=== PATIENT | female | born 1990 | race Caucasian/White ===

== ENCOUNTER → 2016-08-09 15:09 | Emergency (ER) | payer OTHER ==
[~2016-08-09 15:09] MED LIST: Acetaminophen TAB* 325 MG PO ONE; Amoxicillin/Clavulanate TAB* 875 MG PO ONE; Ondansetron INJ* 2 MG/ML VIAL IV ONE
[2016-08-09 16:24] LABS: Hematocrit 44 % (35-47); Mean Corpuscular HGB Conc 34 g/dl (31-36); Mean Corpuscular Hemoglobin 30 pg (27-31); Mean Corpuscular Volume 86 fL (80-97); Mean Platelet Volume 9 um3 (7.4-10.4); Red Blood Count 5.07 10^6/ul (4.0-5.4); Red Cell Distribution Width 13 % (10.5-15); White Blood Count 6.5 10^3/ul (3.5-10.8)
[2016-08-09 16:25] LABS: Venous Bicarbonate HCO3 22.9 mmol/L (24-28)
[2016-08-09] MEDS: NS 0.9% 1000 ML* 3,000 ML IV ONE ×2 (16:31→18:41)
[2016-08-09 16:40] LABS: Albumin 3.9 g/dL (3.2-5.2); BUN/Creatinine Ratio 14.8 (8-20); C Reactive Protein 28.63 mg/L (< 5.00); Calcium 9.1 mg/dL (8.6-10.3); EGFR African American 111.7 (>60); EGFR Non-African American 86.9 (>60); Globulin 3.5 g/dL (2-4); Potassium 3.7 mmol/L (3.5-5.0); Total Bilirubin 0.6 mg/dL (0.2-1.0); Total Protein 7.4 g/dL (6.4-8.9)
[2016-08-09 17:40] VITALS: BP 121/76
[2016-08-09 18:43] LABS: Urine Bilirubin Negative (Negative); Urine Glucose 3+(>=500 mg/dL) (Negative); Urine Nitrite Negative (Negative)
--- NOTE | 2016-08-09 19:13 | ED ---
Archana Astudillo Salem, scribed for Monty Duran MD on 08/09/16 at 1549 . HPI Diabetic - HPI Summary HPI Summary: Patient is a 26 y/o F who presents to the ED with elevated ketones since 1400. She reports a fever, cough, palpitations, nausea since this afternoon, diarrhea , dizzy (a couple of days ago), headache (frontal pressure), intermittent sore throat, rhinorrhea, and fever (for past 2 days), but denies vomiting, urinary symptoms, any rashes, CP, SOB, abd pain, recent teeth infection, or drainage from ear. She also reports a BG level of 286 prior to examination, but states that BG has been fluctuating all week (going from normal to 400). Pt also states that she cleaned her infusion set recently and reports purulent drainage from site. She states that she developed a head cold 4 days ago. PMHx significant for Type 1 DM. Pt has had an insulin pump since she was 15 y/o. She states that her typical HR runs between 80-100. She reports hx of ear infections and infusion set site infection. Pt also states that she spent the weekend with someone who has bronchitis. Pt took Zofran this afternoon for nausea. She states that she was told not to take decongestants by her security services manager due to her fast resting HR. - History Of Current Complaint Chief Complaint: EDDiabeticProb Time Seen by Provider: 08/09/16 15:43 Hx Obtained From: Patient, Family/New Car Inspector Onset/Duration: Gradual Onset, Lasting Hours, Still Present Timing: Constant Severity Initially: Moderate Severity Currently: Moderate Character: Alert Aggravating: Nothing Alleviating: Nothing Associated Signs & Symptoms: Fever, Nausea Related History: DM I - Allergies/Home Medications Allergies/Adverse Reactions: Allergies Allergy/AdvReac Type Severity Reaction Status Date / Time Gluten Meal AdvReac Intermediate Diarrhea Verified 11/12/14 16:32 PMH/Surg Hx/FS Hx/Imm Hx Endocrine/Hematology History: Reports: Hx Diabetes Psychiatric History: Reports: Hx Depression - Immunization History Date of Tetanus Vaccine: Unk Date of Influenza Vaccine: None Infectious Disease History: No Infectious Disease History: Denies: Traveled Outside the [place] in Last 30 Days - Family History Known Family History: Positive: Cardiac Disease - [place] - father. , Hypertension - Social History Alcohol Use: None Hx Substance Use: No Substance Use Type: Reports: None Hx Tobacco Use: No Smoking Status (MU): Never Smoked Tobacco Review of Systems Positive: Fever ENT: Other - No teeth infection. Drainage from ear. Positive: Sore Throat Positive: Palpitations, Other - Ketones high. High BG. . Negative: Chest Pain Positive: Cough. Negative: Shortness Of Breath Positive: Diarrhea, Nausea. Negative: Abdominal Pain, Vomiting Positive: no symptoms reported Positive: Other - Purulent drainage from infusion site. . Negative: Rash Neurological: Other - Dizzy. Positive: Headache All Other Systems Reviewed And Are Negative: Yes Physical Exam - Summary Physical Exam Summary: The patient is well-nourished in no acute distress and in no acute pain. The skin is warm and dry and skin color reflects adequate perfusion. Infusion site does not look infected. HEENT: The head is normocephalic and atraumatic. The pupils are equal and reactive. The conjunctivae are clear and without drainage. Mouth reveals moist mucous membranes and the throat is without erythema and exudate. There is post- nasal drip. No sinus tenderness or adenopathy. The external ears are intact. The left ear canal is patent and without drainage and the tympanic membranes intact. There is clear fluid in right ear. Pt exhibits rhinorrhea. Neck is supple with full range of motion and non-tender. Respiratory: Chest is non-tender. Lungs are clear to auscultation and breath sounds are symmetrical and equal. Cardiovascular: Heart is tachycardic. There is no murmur or rub auscultated. There is no peripheral edema and pulses are symmetrical and equal. Abdomen: The abdomen is soft and non-tender. There are normal bowel sounds heard in all four quadrants. Musculoskeletal: There is no back pain noted. Extremities are non-tender with full range of motion. There is good capillary refill. There is no peripheral edema. Neurological: Patient is alert and oriented to person, place and time. The patient has symmetrical motor strength in all four extremities. Psychiatric: The patient has an appropriate affect and does not exhibit any anxiety or depression. Triage Information Reviewed: Yes Vital Signs On Initial Exam: Initial Vitals Temp Pulse Resp BP Pulse Ox 98.3 F 138 16 143/98 100 08/09/16 15:10 08/09/16 15:10 08/09/16 15:10 08/09/16 15:10 08/09/16 15:10 Vital Signs Reviewed: Yes Diagnostics - Vital Signs Vital Signs Temp Pulse Resp BP Pulse Ox 08/09/16 15:32 100.4 F 119 19 139/94 97 08/09/16 15:30 126 139/94 97 08/09/16 15:28 140/94 08/09/16 15:10 98.3 F 138 16 143/98 100 - Laboratory Lab Results: Lab Results 08/09/16 08/09/16 08/09/16 Range/Units 16:15 16:15 16:15 WBC 6.5 (3.5-10.8) 10^3/ul RBC 5.07 (4.0-5.4) 10^6/ul Hgb 15.0 (12.0-16.0) g/dl Hct 44 (35-47) % MCV 86 (80-97) fL MCH 30 (27-31) pg MCHC 34 (31-36) g/dl RDW 13 (10.5-15) % Plt Count 229 (150-450) 10^3/ul MPV 9 (7.4-10.4) um3 Neut % (Auto) 68.5 (38-83) % Lymph % (Auto) 22.3 L (25-47) % [place] % (Auto) 6.6 (1-9) % Eos % (Auto) 2.0 (0-6) % Baso % (Auto) 0.6 (0-2) % Absolute Neuts (auto) 4.4 (1.5-7.7) 10^3/ul Absolute Lymphs (auto) 1.4 (1.0-4.8) 10^3/ul Absolute Monos (auto) 0.4 (0-0.8) 10^3/ul Absolute Eos (auto) 0.1 (0-0.6) 10^3/ul Absolute Basos (auto) 0 (0-0.2) 10^3/ul Absolute Nucleated RBC 0 10^3/ul Nucleated RBC % 0 VBG pH (7.33-7.43) VBG pCO2 (41-51) mmHg VBG pO2 (35-45) mmHg VBG HCO3 (24-28) mmol/L VBG O2 Saturation (70-80) % VBG Base Excess (0-4) Sodium 131 L (133-145) mmol/L Potassium 3.7 (3.5-5.0) mmol/L Chloride 100 L (101-111) mmol/L Carbon Dioxide 22 (22-32) mmol/L Anion Gap 9 (2-11) mmol/L BUN 12 (6-24) mg/dL Creatinine 0.81 (0.51-0.95) mg/dL Est GFR ( Amer) 111.7 (>60) Est GFR (Non-Af Amer) 86.9 (>60) BUN/Creatinine Ratio 14.8 (8-20) Glucose 265 H (70-100) mg/dL Lactic Acid 1.5 (0.5-2.0) mmol/L Calcium 9.1 (8.6-10.3) mg/dL Total Bilirubin 0.60 (0.2-1.0) mg/dL AST 11 L (13-39) U/L ALT 9 (7-52) U/L Alkaline Phosphatase 68 (34-104) U/L Total Creatine Kinase 24 (10-223) U/L C-Reactive Protein 28.63 H (< 5.00) mg/L Total Protein 7.4 (6.4-8.9) g/dL Albumin 3.9 (3.2-5.2) g/dL Globulin 3.5 (2-4) g/dL Albumin/Globulin Ratio 1.1 (1-3) Urine Color Urine Appearance Urine pH (5-9) Ur Specific [place] (1.010-1.030) Urine Protein (Negative) Urine Ketones (Negative) Urine Blood (Negative) Urine Nitrate (Negative) Urine Bilirubin (Negative) Urine Urobilinogen (Negative) Ur Leukocyte Esterase (Negative) Urine Glucose (Negative) 08/09/16 08/09/16 Range/Units 16:15 18:30 WBC (3.5-10.8) 10^3/ul RBC (4.0-5.4) 10^6/ul Hgb (12.0-16.0) g/dl Hct (35-47) % MCV (80-97) fL MCH (27-31) pg MCHC (31-36) g/dl RDW (10.5-15) % Plt Count (150-450) 10^3/ul MPV (7.4-10.4) um3 Neut % (Auto) (38-83) % Lymph % (Auto) (25-47) % [place] % (Auto) (1-9) % Eos % (Auto) (0-6) % Baso % (Auto) (0-2) % Absolute Neuts (auto) (1.5-7.7) 10^3/ul Absolute Lymphs (auto) (1.0-4.8) 10^3/ul Absolute Monos (auto) (0-0.8) 10^3/ul Absolute Eos (auto) (0-0.6) 10^3/ul Absolute Basos (auto) (0-0.2) 10^3/ul Absolute Nucleated RBC 10^3/ul Nucleated RBC % VBG pH 7.38 (7.33-7.43) VBG pCO2 41 (41-51) mmHg VBG pO2 26 L (35-45) mmHg VBG HCO3 22.9 L (24-28) mmol/L VBG O2 Saturation 53.5 L (70-80) % VBG Base Excess -0.9 L (0-4) Sodium (133-145) mmol/L Potassium (3.5-5.0) mmol/L Chloride (101-111) mmol/L Carbon Dioxide (22-32) mmol/L Anion Gap (2-11) mmol/L BUN (6-24) mg/dL Creatinine (0.51-0.95) mg/dL Est GFR ( Amer) (>60) Est GFR (Non-Af Amer) (>60) BUN/Creatinine Ratio (8-20) Glucose (70-100) mg/dL Lactic Acid (0.5-2.0) mmol/L Calcium (8.6-10.3) mg/dL Total Bilirubin (0.2-1.0) mg/dL AST (13-39) U/L ALT (7-52) U/L Alkaline Phosphatase (34-104) U/L Total Creatine Kinase (10-223) U/L C-Reactive Protein (< 5.00) mg/L Total Protein (6.4-8.9) g/dL Albumin (3.2-5.2) g/dL Globulin (2-4) g/dL Albumin/Globulin Ratio (1-3) Urine Color Yellow Urine Appearance Clear Urine pH 5.0 (5-9) Ur Specific [place] 1.012 (1.010-1.030) Urine Protein Negative (Negative) Urine Ketones 1+ H (Negative) Urine Blood Negative (Negative) Urine Nitrate Negative (Negative) Urine Bilirubin Negative (Negative) Urine Urobilinogen Negative (Negative) Ur Leukocyte Esterase Negative (Negative) Urine Glucose 3+(>=500 mg/dl) H (Negative) Result Diagrams: 08/09/16 16:15 08/09/16 16:15 Lab Statement: Any lab studies that have been ordered have been reviewed, and results considered in the medical decision making process. - EKG 1747 EKG Interpretation: NSR @ 98bpm. LAD. PRWP. Re-Evaluation - Re-Evaluation First Eval Re-Evaluation Time: 17:43 Comment: Reviewed labs. Diabetic Course/Dx - Course Course Of Treatment: 26 y/o F presents with elevated ketones since 1400. She reports a fever, cough, palpitations, nausea since this afternoon, diarrhea, dizzy (a couple of days ago), headache (frontal pressure), intermittent sore throat, rhinorrhea, and fever (for past 2 days), but denies vomiting, urinary symptoms, any rashes, CP, SOB, abd pain, recent teeth infection, or drainage from ear. She also reports a BG level of 286 prior to examination, but states that BG has been fluctuating all week. Pt received Zofran, Tylenol, and fluids in ED course. EKS shows NSR @ 98bpm. LAD. PRWP. Pt is stable and will be DC'd with Augmentin. - Diagnoses Differential Dx: Diabetic Ketoacidosis, Pyelonephritis, Other - sinus infection , uri Provider Diagnoses: Sinusitis, Hypoglycemia, Dehydration Discharge - Discharge Plan Condition: Stable Disposition: HOME Prescriptions: Amoxicillin/Clavulanate TAB* [Augmentin TAB 875*] 875 mg PO BID #20 tab Patient Education Materials: Hypoglycemia in a Person with Diabetes (ED), Dehydration (ED), Sinusitis (ED) Referrals: Dee Hyatt MD [Primary Care Provider] - Additional Instructions: Please follow up with your primary care provider. The documentation as recorded by the Archana gonzalez Salem accurately reflects the service I personally performed and the decisions made by , Monty Duran MD.
== END | disposition home or self-care (01) ==
LOC: ED 15:09
DX: J32.9 Chronic sinusitis, unspecified (principal); E10.649 Type 1 diabetes mellitus with hypoglycemia without coma; E86.0 Dehydration; R50.9 Fever, unspecified; R11.0 Nausea; R51 Headache
CPT/HCPCS: 36415; 80053; 81003; 82550; 82803; 83605; 85025; 86140; 87040; 93005; 96361; 96374; 99283; A9270-GY; J2405

== ENCOUNTER 2016-09-12 22:44 | Emergency (ER) | payer OTHER ==
[2016-09-13] MEDS: NS 0.9% 1000 ML* 2,000 ML IV ONE ×2 (00:40→01:48)
[2016-09-13 00:48] LABS: Venous Bicarbonate HCO3 23.7 mmol/L (24-28)
[2016-09-13 00:54] LABS: Urine Bilirubin Negative (Negative); Urine Glucose 3+(>=500 mg/dL) (Negative); Urine Nitrite Negative (Negative)
[2016-09-13 01:00] LABS: Hematocrit 37 % (35-47); Hemoglobin 12.3 g/dl (12.0-16.0); Mean Corpuscular HGB Conc 33 g/dl (31-36); Mean Corpuscular Hemoglobin 30 pg (27-31); Mean Corpuscular Volume 89 fL (80-97); Mean Platelet Volume 9 um3 (7.4-10.4); Red Blood Count 4.17 10^6/ul (4.0-5.4); Red Cell Distribution Width 13 % (10.5-15); White Blood Count 6.6 10^3/ul (3.5-10.8)
[2016-09-13 01:07] LABS: ALT 11 U/L (7-52); Albumin 3.3 g/dL (3.2-5.2); Alkaline Phosphatase 41 U/L (34-104); BUN/Creatinine Ratio 5.9 (8-20); Blood Urea Nitrogen 4 mg/dL (6-24); C Reactive Protein 5.45 mg/L (< 5.00); CO2 Carbon Dioxide 21 mmol/L (22-32); Calcium 8.6 mg/dL (8.6-10.3); Chloride 106 mmol/L (101-111); Creatine Kinase 49 U/L (10-223); EGFR African American 136.7 (>60); EGFR Non-African American 106.3 (>60); Glucose 220 mg/dL (70-100); Lipase < 10 U/L (11.0-82.0); Sodium 133 mmol/L (133-145); Total Protein 6.3 g/dL (6.4-8.9)
[2016-09-13 01:18] LABS: Anion Gap 6 mmol/L (2-11)
[2016-09-13 01:44] LABS: TSH (Thyroid Stimulating Horm) 2.43 mcIU/mL (0.34-5.60)
[2016-09-13 01:48] LABS: Erythrocyte Sed Rate 11 mm/Hr (0-14)
[2016-09-13 02:17] LABS: Magnesium 1.6 mg/dL (1.9-2.7)
[2016-09-13 03:01] VITALS: BP 120/93
--- NOTE | 2016-09-13 03:15 | ED ---
Romina Astudillo Alfonso, scribed for Alexandra Duran MD on 09/13/16 at 0059 . Complex/Multi-Sys Presentation - HPI Summary HPI Summary: This patient is a 26 year old F presenting to [facility] accompanied by parents with a chief complaint of diabetic problems since two weeks ago. She reports. Pt rates the pain 1/10 in severity. Pt reports ketones in her urine, hypoglycemia, mucous in the stool (1-2 days ago), green stool (today), nausea, and flatulence. Pt denies loss of appetite, dysuria, fatigue, weight change, abdominal pain, and flank pain. She was prescribed bacterium on 09/04 and has since completed the course. Denies recent travel. Denies eating bad food. She reports seeing Dr. Wayne (lean sensei) today who alexandra labs. Denies abdominal PSHx. PMHx of DM type one. - History Of Current Complaint Chief Complaint: EDDiabeticProb Time Seen by Provider: 09/12/16 23:28 Hx Obtained From: Patient Onset/Duration: Sudden Onset, Lasting Weeks - 2, Still Present Timing: Constant Severity Currently: Moderate Severity Initially: Moderate Associated Signs And Symptoms: Positive: Other - Pt reports ketones in her urine , hypoglycemia, mucous in the stool (1-2 days ago), green stool (today), nausea , and flatulence. Pt denies loss of appetite, dysuria, fatigue, weight change, abdominal pain, and flank pain. - Allergies/Home Medications Allergies/Adverse Reactions: Allergies Allergy/AdvReac Type Severity Reaction Status Date / Time Gluten Meal AdvReac Intermediate Diarrhea Verified 11/12/14 16:32 PMH/Surg Hx/FS Hx/Imm Hx Endocrine/Hematology History: Reports: Hx Diabetes - Type 1 Psychiatric History: Reports: Hx Depression - Immunization History Date of Tetanus Vaccine: Unk Date of Influenza Vaccine: None Infectious Disease History: No Infectious Disease History: Denies: Traveled Outside the [place] in Last 30 Days - Family History Known Family History: Positive: Cardiac Disease - [place] - father. , Hypertension - Social History Alcohol Use: None Hx Substance Use: No Substance Use Type: Reports: None Hx Tobacco Use: No Smoking Status (MU): Never Smoked Tobacco Review of Systems Positive: Other - Positive ketones in her urine, hypoglycemia, mucous in the stool (1-2 days ago), green stool (today), nausea, and flatulence; negative loss of appetite, weight change, abdominal pain, and flank pain Negative: dysuria Neurological: Other - Positive fatigue All Other Systems Reviewed And Are Negative: Yes Physical Exam - Summary Physical Exam Summary: The patient is well-nourished in no acute distress and in no acute pain. The skin is warm and dry and skin color reflects adequate perfusion. Good skin turgor. HEENT: The head is normocephalic and atraumatic. The pupils are equal and reactive. The conjunctivae are clear and without drainage. Nares are patent and without drainage. Mouth reveals moist mucous membranes and the throat is without erythema and exudate. The external ears are intact. The ear canals are patent and without drainage. The tympanic membranes are intact. Neck is supple with full range of motion and non-tender. There are no carotid bruits. There is no neck vein distension. Respiratory: Chest is non-tender. Lungs are clear to auscultation and breath sounds are symmetrical and equal. Cardiovascular: Heart is tachycardic. There is no murmur or rub auscultated. There is no peripheral edema and pulses are symmetrical and equal. Abdomen: The abdomen is soft and non-tender. There are normal bowel sounds heard in all four quadrants and there is no organomegaly palpated. No gaurding or rebound. Musculoskeletal: There is no back pain noted. Extremities are non-tender with full range of motion. There is 2 second capillary refill. There is no peripheral edema or calf tenderness elicited. Neurological: Patient is alert and oriented to person, place and time. The patient has symmetrical motor strength in all four extremities. Cranial nerves are grossly intact. Deep tendon reflexes are symmetrical and equal in all four extremities. Psychiatric: The patient has an appropriate affect and does not exhibit any anxiety or depression. Triage Information Reviewed: Yes Vital Signs On Initial Exam: Initial Vitals Temp Pulse Resp BP Pulse Ox 98.7 F 99 18 146/97 100 09/12/16 22:47 09/12/16 22:47 09/12/16 22:47 09/12/16 22:47 09/12/16 22:47 Vital Signs Reviewed: Yes - Myles Coma Scale Coma Scale Total: 15 Diagnostics - Vital Signs Vital Signs Temp Pulse Resp BP Pulse Ox 09/13/16 00:12 132/94 09/13/16 00:00 98 98 09/12/16 23:30 93 133/85 98 09/12/16 23:14 111 99 09/12/16 23:10 108 99 09/12/16 23:07 98.6 F 112 18 137/82 100 09/12/16 22:47 98.7 F 99 18 146/97 100 - Laboratory Lab Results: Lab Results 09/13/16 09/13/16 Range/Units 00:30 00:30 VBG pH 7.41 (7.33-7.43) VBG pCO2 36 L (41-51) mmHg VBG pO2 66 H (35-45) mmHg VBG HCO3 23.7 L (24-28) mmol/L VBG O2 Saturation 96.4 H (70-80) % VBG Base Excess -1.5 L (0-4) Urine Color Straw Urine Appearance Clear Urine pH 6.0 (5-9) Ur Specific [place] 1.005 L (1.010-1.030) Urine Protein Negative (Negative) Urine Ketones Negative (Negative) Urine Blood Negative (Negative) Urine Nitrate Negative (Negative) Urine Bilirubin Negative (Negative) Urine Urobilinogen Negative (Negative) Ur Leukocyte Esterase Negative (Negative) Urine Glucose 3+(>=500 mg/dl) H (Negative) Result Diagrams: 09/13/16 00:30 09/13/16 01:18 Lab Statement: Any lab studies that have been ordered have been reviewed, and results considered in the medical decision making process. - Radiology Abd X-Ray Radiology Interpretation Completed By: ED Physician - No obstruction and increased stool in the colon. Complex Multi-Symp Course/Dx Assessment/Plan: 26 [facility] with a chief complaint of diabetic problems since two weeks ago. She reports. Pt rates the pain 1/10 in severity. Pt reports ketones in her urine, hypoglycemia, mucous in the stool (1-2 days ago), green stool (today), nausea, and flatulence. Pt denies loss of appetite, dysuria, fatigue, weight change, abdominal pain, and flank pain. She was prescribed bacterium on 09/04 and has since completed the course. Denies recent travel. Denies eating bad food. She reports seeing Dr. Wayne (lean sensei) today who alexandra labs. Denies abdominal PSHx. PMHx of DM type one. Abdominal XR reveals no obstruction and increased stool in the colon. Patient will be discharged with follow up from PCP, Dr. Wayne , and GI. Pt is agreeable with this plan. - Diagnoses Differential Diagnoses/HQI/PQRI: Metabolic Abnormality, Urinary Tract Infection , Other - DKA, obstruction, constipation Provider Diagnoses: Hyperglycemia, Abdominal discomfort Discharge - Discharge Plan Condition: Stable Disposition: HOME Patient Education Materials: How to Check Your Blood Sugar (ED), Type 1 Diabetes Management for Adolescents (ED) Referrals: Nino Wayne MD [Medical Doctor] - 7 Days Dee Hyatt MD [Primary Care Provider] - 3 Days Marvin Vásquez MD [Medical Doctor] - 3 Days Additional Instructions: Follow up with a GI physician. Consider seeking a second opinion regarding Celiac Disease. The documentation as recorded by the Romina gonzalez Alfonso accurately reflects the service I personally performed and the decisions made by , Alexandra Duran MD.
--- NOTE | 2016-09-13 10:21 | RAD ---
Indication: Pain, diarrhea. Question ileus or small bowel obstruction. Comparison: February 22, 2013 Technique: Supine and upright views of the abdomen. Report: No radiographic evidence for free air. Unremarkable bowel gas pattern. Moderate stool in the colon without significant rectal distension. Negative for suspicious calcifications. Unremarkable soft tissue contours. IMPRESSION: No acute abdominal pelvic pathologic process evident.
== END 2016-09-13 03:03 | disposition home or self-care (01) ==
LOC: ED 22:44
DX: R73.9 Hyperglycemia, unspecified (principal); R10.9 Unspecified abdominal pain
CPT/HCPCS: 36415; 74020; 80053; 81003; 82550; 82803; 83605; 83690; 83735; 84443; 84702; 85025; 85652; 86140; 96360; 99284

== ENCOUNTER 2017-06-20 13:33 | Inpatient (IN) | payer OTHER ==
[2017-06-20] MEDS ORDERED: NS 0.9% 1000 ML*IV.FLUID IV ONE (14:04)
[2017-06-20] MEDS ORDERED: Ondansetron ODT TAB* 4 MG PO ONE (14:08)
[2017-06-20 14:33] LABS: ABS Basophils 0 10^3/ul (0-0.2); ABS Eosinophils 0 10^3/ul (0-0.6); ABS Lymphocytes 0.5 10^3/ul (1.0-4.8); ABS Monocytes 0 10^3/ul (0-0.8); ABS Neutrophils 12.2 10^3/ul (1.5-7.7); ABS Nucleated RBC 0 10^3/ul; Eosinophil % 0.1 % (0-6); Hematocrit 44 % (35-47); Hemoglobin 14.9 g/dl (12.0-16.0); Lymphocyte % 4.1 % (25-47); Mean Corpuscular HGB Conc 34 g/dl (31-36); Mean Corpuscular Hemoglobin 30 pg (27-31); Mean Corpuscular Volume 89 fL (80-97); Mean Platelet Volume 8.6 um3 (7.4-10.4); Nucleated Red Blood Cells % 0; Platelet Count 260 10^3/ul (150-450); Red Blood Count 5.01 10^6/ul (4.0-5.4); Red Cell Distribution Width 13 % (10.5-15); White Blood Count 12.8 10^3/ul (3.5-10.8)
[2017-06-20 14:45] LABS: INR 0.86 (0.77-1.02)
[2017-06-20 15:00] LABS: EGFR Non-African American 77.9 (>60)
[2017-06-20] MEDS ORDERED: Dextrose 50% Syringe 50 ML* 25 GM/50 ML SYRINGE IV PUSH ONE (16:19)
[2017-06-20 16:24] LABS: Urine Appearance Clear; Urine Blood Negative (Negative); Urine Color Straw; Urine Ketones Negative (Negative); Urine Protein Negative (Negative); Urine Specific Gravity 1.008 (1.010-1.030); Urine Urobilinogen Negative (Negative)
[2017-06-20] MEDS ORDERED: NS 0.9% 1000 ML* 1,000 ML IV ONE (17:13)
[2017-06-20] MEDS ORDERED: Ciprofloxacin 400MG IVPREMIX(* 400 MG/200 ML BAG IVPB ONE (18:04)
[2017-06-20] MEDS ORDERED: NS 0.9% 1000 ML* 3,000 ML IV ONE (18:05)
[2017-06-20] MEDS ORDERED: Ondansetron INJ* 2 MG/ML SYRINGE (from 40/20 VIAL) IV PRN (18:11)
[2017-06-20] MEDS ORDERED: Potassium Chlor TAB* 20 MEQ TAB.ER PO ONE (18:11)
[2017-06-20] MEDS ORDERED: Ondansetron ODT TAB* 4 MG ONE (18:24)
[2017-06-20] MEDS ORDERED: Iodixanol* (CONTRAST) 320 MG/ML 100 ML SDV IV ONE (18:26)
--- NOTE | 2017-06-20 18:26 | ED ---
Hector Astudillo Stephanie, scribed for Domenic Rockwell MD on 06/20/17 at 1415 . GI/ HPI - HPI Summary HPI Summary: The pt is a 26 y/o F presenting to the ED with c/o N/V/D that began today. Symptoms include chills, diffuse and intermittent abd cramping, dehydration and high blood glucose. The pt has hx of diabetes since age 15. She recently changed the site of her insulin because her most recent site became infected. - History of Current Complaint Chief Complaint: EDNauseaVomitDiarrh Time Seen by Provider: 06/20/17 13:52 Stated Complaint: DIABICTIC Hx Obtained From: Patient Onset/Duration: Started Hours Ago, Still Present Timing: Constant Current Severity: Severe Pain Intensity: 6 Location of Pain: Diffuse Pain Characteristics: Cramping Associated Signs and Symptoms: Positive: Nausea, Vomiting, Diarrhea, Chills, Abdominal Pain, Other: - dehydration Aggravating Factor(s): Nothing Alleviating Factor(s): Nothing - Allergy/Home Medications Allergies/Adverse Reactions: Allergies Allergy/AdvReac Type Severity Reaction Status Date / Time MS Gluten Meal [Gluten Meal] AdvReac Intermediate Diarrhea Verified 11/12/14 16: 32 Home Medications: Home Medications Cholecalciferol TAB* [Vitamin D TAB*] 4,000 unit PO DAILY 06/20/17 [History Confirmed 06/20/17] Cyanocobalamin TAB* [Vitamin B12 TAB*] 500 mcg PO DAILY 06/20/17 [History Confirmed 06/20/17] Insulin Glulisine [Apidra] 0 units SUBCUT DAILY 06/20/17 [History Confirmed 01/26] Multivitamins/Minerals TAB* [Theragran/minerals TAB*] 1 tab PO DAILY 06/20/17 [ History Confirmed 06/20/17] Sertraline* [Zoloft*] 100 mg PO DAILY 06/20/17 [History Confirmed 06/20/17] ValACYclovir (*) [Valtrex 500 mg (*)] 500 mg PO BID PRN 06/20/17 [History Confirmed 06/20/17] l-Norgest/E.estradiol-E.estrad [Daysee] 1 tab PO DAILY 06/20/17 [History Confirmed 06/20/17] PMH/Surg Hx/FS Hx/Imm Hx Endocrine/Hematology History: Reports: Hx Diabetes - Type 1 Sensory History: Denies: Hx Legally Blind EENT History: Denies: Hx Deafness Psychiatric History: Reports: Hx Depression - Immunization History Date of Tetanus Vaccine: Unk Date of Influenza Vaccine: None Infectious Disease History: No Infectious Disease History: Denies: Traveled Outside the [place] in Last 30 Days - Family History Known Family History: Positive: Cardiac Disease - [place] - father. , Hypertension - Social History Occupation: Employed Part-time Lives: With Family Alcohol Use: None Hx Substance Use: No Substance Use Type: Reports: None Hx Tobacco Use: No Smoking Status (MU): Never Smoked Tobacco Review of Systems Positive: Chills, Other - dehydration, high blood glucose. Negative: Fever Positive: Abdominal Pain, Vomiting, Diarrhea, Nausea All Other Systems Reviewed And Are Negative: Yes Physical Exam - Summary Physical Exam Summary: General: well-appearing, no pain distress Skin: warm, color reflects adequate perfusion, dry Head: normal Eyes: EOMI, ODALYS ENT: oral mucosa dry Neck: supple, nontender Respiratory: CTA, breath sounds present Cardiovascular: tachycardic Abdomen: soft, nontender to palpation Bowel: positive bowel sounds Musculoskeletal: normal, strength/ROM intact Neurological: sensory/motor intact, A&O x3 Psychological: affect/mood appropriate Triage Information Reviewed: Yes Vital Signs On Initial Exam: Initial Vitals Temp Pulse Resp BP Pulse Ox 98.7 F 135 20 101/67 100 06/20/17 13:37 06/20/17 13:37 06/20/17 13:37 06/20/17 13:37 06/20/17 13:37 Vital Signs Reviewed: Yes Diagnostics - Vital Signs Vital Signs Temp Pulse Resp BP Pulse Ox 06/20/17 13:37 98.7 F 135 20 101/67 100 - Laboratory Lab Results: Lab Results 06/20/17 06/20/17 06/20/17 Range/Units 13:52 14:19 14:19 WBC 12.8 H (3.5-10.8) 10^3/ul RBC 5.01 (4.0-5.4) 10^6/ul Hgb 14.9 (12.0-16.0) g/dl Hct 44 (35-47) % MCV 89 (80-97) fL MCH 30 (27-31) pg MCHC 34 (31-36) g/dl RDW 13 (10.5-15) % Plt Count 260 (150-450) 10^3/ul MPV 8.6 (7.4-10.4) um3 Neut % (Auto) 95.3 H (38-83) % Lymph % (Auto) 4.1 L (25-47) % Buchanan % (Auto) 0.4 (0-7) % Eos % (Auto) 0.1 (0-6) % Baso % (Auto) 0.1 (0-2) % Absolute Neuts (auto) 12.2 H (1.5-7.7) 10^3/ul Absolute Lymphs (auto) 0.5 L (1.0-4.8) 10^3/ul Absolute Monos (auto) 0 (0-0.8) 10^3/ul Absolute Eos (auto) 0 (0-0.6) 10^3/ul Absolute Basos (auto) 0 (0-0.2) 10^3/ul Absolute Nucleated RBC 0 10^3/ul Nucleated RBC % 0 INR (Anticoag Therapy) 0.86 (0.77-1.02) APTT 21.6 L (26.0-36.3) seconds Sodium (139-145) mmol/L Potassium (3.5-5.0) mmol/L Chloride (101-111) mmol/L Carbon Dioxide (22-32) mmol/L Anion Gap (2-11) mmol/L BUN (6-24) mg/dL Creatinine (0.51-0.95) mg/dL Est GFR ( Amer) (>60) Est GFR (Non-Af Amer) (>60) BUN/Creatinine Ratio (8-20) Glucose (70-100) mg/dL POC Glucose (mg/dL) 169 H (70-100) mg/dL Lactic Acid (0.5-2.0) mmol/L Calcium (8.6-10.3) mg/dL Total Bilirubin (0.2-1.0) mg/dL AST (13-39) U/L ALT (7-52) U/L Alkaline Phosphatase (34-104) U/L Troponin I (<0.04) ng/mL C-Reactive Protein (< 5.00) mg/L Total Protein (6.4-8.9) g/dL Albumin (3.2-5.2) g/dL Globulin (2-4) g/dL Albumin/Globulin Ratio (1-3) Lipase (11.0-82.0) U/L Procalcitonin (<0.6) ng/mL Beta HCG, Quant mIU/mL Urine Color Urine Appearance Urine pH (5-9) Ur Specific Beaver (1.010-1.030) Urine Protein (Negative) Urine Ketones (Negative) Urine Blood (Negative) Urine Nitrate (Negative) Urine Bilirubin (Negative) Urine Urobilinogen (Negative) Ur Leukocyte Esterase (Negative) Urine Glucose (Negative) 06/20/17 06/20/17 06/20/17 Range/Units 14:19 14:19 14:19 WBC (3.5-10.8) 10^3/ul RBC (4.0-5.4) 10^6/ul Hgb (12.0-16.0) g/dl Hct (35-47) % MCV (80-97) fL MCH (27-31) pg MCHC (31-36) g/dl RDW (10.5-15) % Plt Count (150-450) 10^3/ul MPV (7.4-10.4) um3 Neut % (Auto) (38-83) % Lymph % (Auto) (25-47) % Buchanan % (Auto) (0-7) % Eos % (Auto) (0-6) % Baso % (Auto) (0-2) % Absolute Neuts (auto) (1.5-7.7) 10^3/ul Absolute Lymphs (auto) (1.0-4.8) 10^3/ul Absolute Monos (auto) (0-0.8) 10^3/ul Absolute Eos (auto) (0-0.6) 10^3/ul Absolute Basos (auto) (0-0.2) 10^3/ul Absolute Nucleated RBC 10^3/ul Nucleated RBC % INR (Anticoag Therapy) (0.77-1.02) APTT (26.0-36.3) seconds Sodium 141 (139-145) mmol/L Potassium 3.1 L (3.5-5.0) mmol/L Chloride 106 (101-111) mmol/L Carbon Dioxide 22 (22-32) mmol/L Anion Gap 13 H (2-11) mmol/L BUN 12 (6-24) mg/dL Creatinine 0.89 (0.51-0.95) mg/dL Est GFR ( Amer) 100.2 (>60) Est GFR (Non-Af Amer) 77.9 (>60) BUN/Creatinine Ratio 13.5 (8-20) Glucose 135 H (70-100) mg/dL POC Glucose (mg/dL) (70-100) mg/dL Lactic Acid 4.6 H* (0.5-2.0) mmol/L Calcium 9.0 (8.6-10.3) mg/dL Total Bilirubin 0.70 (0.2-1.0) mg/dL AST 17 (13-39) U/L ALT 13 (7-52) U/L Alkaline Phosphatase 70 (34-104) U/L Troponin I 0.00 (<0.04) ng/mL C-Reactive Protein 13.71 H (< 5.00) mg/L Total Protein 7.0 (6.4-8.9) g/dL Albumin 3.8 (3.2-5.2) g/dL Globulin 3.2 (2-4) g/dL Albumin/Globulin Ratio 1.2 (1-3) Lipase 13 (11.0-82.0) U/L Procalcitonin 1.5 H (<0.6) ng/mL Beta HCG, Quant < 0.60 mIU/mL Urine Color Urine Appearance Urine pH (5-9) Ur Specific Beaver (1.010-1.030) Urine Protein (Negative) Urine Ketones (Negative) Urine Blood (Negative) Urine Nitrate (Negative) Urine Bilirubin (Negative) Urine Urobilinogen (Negative) Ur Leukocyte Esterase (Negative) Urine Glucose (Negative) 06/20/17 06/20/17 06/20/17 Range/Units 15:26 15:50 16:10 WBC (3.5-10.8) 10^3/ul RBC (4.0-5.4) 10^6/ul Hgb (12.0-16.0) g/dl Hct (35-47) % MCV (80-97) fL MCH (27-31) pg MCHC (31-36) g/dl RDW (10.5-15) % Plt Count (150-450) 10^3/ul MPV (7.4-10.4) um3 Neut % (Auto) (38-83) % Lymph % (Auto) (25-47) % Buchanan % (Auto) (0-7) % Eos % (Auto) (0-6) % Baso % (Auto) (0-2) % Absolute Neuts (auto) (1.5-7.7) 10^3/ul Absolute Lymphs (auto) (1.0-4.8) 10^3/ul Absolute Monos (auto) (0-0.8) 10^3/ul Absolute Eos (auto) (0-0.6) 10^3/ul Absolute Basos (auto) (0-0.2) 10^3/ul Absolute Nucleated RBC 10^3/ul Nucleated RBC % INR (Anticoag Therapy) (0.77-1.02) APTT (26.0-36.3) seconds Sodium (139-145) mmol/L Potassium (3.5-5.0) mmol/L Chloride (101-111) mmol/L Carbon Dioxide (22-32) mmol/L Anion Gap (2-11) mmol/L BUN (6-24) mg/dL Creatinine (0.51-0.95) mg/dL Est GFR ( Amer) (>60) Est GFR (Non-Af Amer) (>60) BUN/Creatinine Ratio (8-20) Glucose (70-100) mg/dL POC Glucose (mg/dL) 89 79 (70-100) mg/dL Lactic Acid (0.5-2.0) mmol/L Calcium (8.6-10.3) mg/dL Total Bilirubin (0.2-1.0) mg/dL AST (13-39) U/L ALT (7-52) U/L Alkaline Phosphatase (34-104) U/L Troponin I (<0.04) ng/mL C-Reactive Protein (< 5.00) mg/L Total Protein (6.4-8.9) g/dL Albumin (3.2-5.2) g/dL Globulin (2-4) g/dL Albumin/Globulin Ratio (1-3) Lipase (11.0-82.0) U/L Procalcitonin (<0.6) ng/mL Beta HCG, Quant mIU/mL Urine Color Straw Urine Appearance Clear Urine pH 5.0 (5-9) Ur Specific Beaver 1.008 L (1.010-1.030) Urine Protein Negative (Negative) Urine Ketones Negative (Negative) Urine Blood Negative (Negative) Urine Nitrate Negative (Negative) Urine Bilirubin Negative (Negative) Urine Urobilinogen Negative (Negative) Ur Leukocyte Esterase Negative (Negative) Urine Glucose Negative (Negative) 06/20/17 06/20/17 Range/Units 16:18 16:53 WBC (3.5-10.8) 10^3/ul RBC (4.0-5.4) 10^6/ul Hgb (12.0-16.0) g/dl Hct (35-47) % MCV (80-97) fL MCH (27-31) pg MCHC (31-36) g/dl RDW (10.5-15) % Plt Count (150-450) 10^3/ul MPV (7.4-10.4) um3 Neut % (Auto) (38-83) % Lymph % (Auto) (25-47) % Buchanan % (Auto) (0-7) % Eos % (Auto) (0-6) % Baso % (Auto) (0-2) % Absolute Neuts (auto) (1.5-7.7) 10^3/ul Absolute Lymphs (auto) (1.0-4.8) 10^3/ul Absolute Monos (auto) (0-0.8) 10^3/ul Absolute Eos (auto) (0-0.6) 10^3/ul Absolute Basos (auto) (0-0.2) 10^3/ul Absolute Nucleated RBC 10^3/ul Nucleated RBC % INR (Anticoag Therapy) (0.77-1.02) APTT (26.0-36.3) seconds Sodium (139-145) mmol/L Potassium (3.5-5.0) mmol/L Chloride (101-111) mmol/L Carbon Dioxide (22-32) mmol/L Anion Gap (2-11) mmol/L BUN (6-24) mg/dL Creatinine (0.51-0.95) mg/dL Est GFR ( Amer) (>60) Est GFR (Non-Af Amer) (>60) BUN/Creatinine Ratio (8-20) Glucose (70-100) mg/dL POC Glucose (mg/dL) 53 L 172 H (70-100) mg/dL Lactic Acid (0.5-2.0) mmol/L Calcium (8.6-10.3) mg/dL Total Bilirubin (0.2-1.0) mg/dL AST (13-39) U/L ALT (7-52) U/L Alkaline Phosphatase (34-104) U/L Troponin I (<0.04) ng/mL C-Reactive Protein (< 5.00) mg/L Total Protein (6.4-8.9) g/dL Albumin (3.2-5.2) g/dL Globulin (2-4) g/dL Albumin/Globulin Ratio (1-3) Lipase (11.0-82.0) U/L Procalcitonin (<0.6) ng/mL Beta HCG, Quant mIU/mL Urine Color Urine Appearance Urine pH (5-9) Ur Specific Beaver (1.010-1.030) Urine Protein (Negative) Urine Ketones (Negative) Urine Blood (Negative) Urine Nitrate (Negative) Urine Bilirubin (Negative) Urine Urobilinogen (Negative) Ur Leukocyte Esterase (Negative) Urine Glucose (Negative) Result Diagrams: 18 14:19 18 14:19 Lab Statement: Any lab studies that have been ordered have been reviewed, and results considered in the medical decision making process. - EKG 17:14 Cardiac Rate: Tachycardia EKG Rhythm: Sinus Tachycardia - 147 BPM Ectopy: None EKG Interpretation: borderline T abnormalities in the inferior leads Re-Evaluation - Re-Evaluation First Eval Re-Evaluation Time: 17:11 Change: Unchanged - ED physician discussed plan of admission with the pt and the pt agrees. GIGU Course/Dx - Course Course Of Treatment: HEART RATE CONTINUES TO BE TACHYCARDIC AFTER 2.5L IV BOLUS. NAUSEA REMAINS. YUSEF HAD A HYPOGLYCEMIC EPISODE AFTER IVF REQUIRING IV AMP OF DEXTROSE. ADMIT HOSPITALIST. - Diagnoses Provider Diagnoses: Vomiting and diarrhea, Abdominal pain, Dehydration, Tachycardia - Physician Notifications Discussed Care Of Patient With: Deidre Roman Time Discussed With Above Provider: 17:09 Instructed by Provider To: Admit As Inpatient - Critical Care Time Critical Care Time: 30-74 min Discharge - Sign-Out/Discharge Documenting (check all that apply): Discharge/Admit/Transfer - Discharge Plan Condition: Stable Disposition: ADMITTED TO [facility] Referrals: Dee Hyatt MD [Primary Care Provider] - - Billing Disposition and Condition Condition: STABLE [place] [place] The documentation as recorded by the Hector gonzalez Stephanie accurately reflects the service I personally performed and the decisions made by me, Domenic Rockwell MD.
[2017-06-20] MEDS: Ondansetron ODT TAB* 4 MG SL PRN (18:30)
--- NOTE | 2017-06-20 19:32 | RAD ---
Indication: Right upper quadrant mass. Real-time sonography of the right upper quadrant was performed. No solid or cystic lesions identified. No shadowing masses are noted. IMPRESSION: No solid or cystic lesions identified.
[2017-06-20] MEDS: Acetaminophen TAB* 325 MG PO PRN (19:52)
--- NOTE | 2017-06-20 21:12 | RAD ---
Indication: Abdominal tenderness, left lower quadrant sepsis CT of the abdomen and pelvis was performed without oral contrast administration. IV contrast was given. Coronal and sagittal reconstructed images were obtained. The lung bases demonstrate no pleural fluid, nodules or masses. Heart is of normal size without evidence of pericardial effusion. Liver is normal in size. No focal lesions or intrahepatic ductal dilatation is noted. The gallbladder is partially contracted. There may be a small amount of pericholecystic fluid noted. The spleen is normal in size. The pancreas demonstrates no mass or pancreatic ductal dilatation. No dilated loops of bowel are noted. There is air and fluid throughout the colon. No adrenal masses are noted. The kidneys demonstrate symmetric nephrograms without focal lesions or hydronephrosis. No retroperitoneal lymphadenopathy is noted. Aorta and inferior vena cava are unremarkable. CT of the pelvis demonstrates uterus to be unremarkable. No dilated loops of bowel are noted. No hernias are noted. Small amount of subcutaneous edema is noted in the right lower quadrant. This may represent a small hematoma. The urinary bladder is unremarkable. IMPRESSION: Pericholecystic fluid is noted. No other masses or fluid collections are identified. There may be some minimal infiltration of the subcutaneous fat in the right lower quadrant. This may represent hematoma.
[2017-06-20] MEDS: NS 0.9% 1000 ML* 1,000 ML IV SCH (21:41)
[2017-06-20] MEDS: metroNIDAZOLE IV 500 MG/100ML* 500 MG/100 ML BAG IVPB SCH (21:41)
--- NOTE | 2017-06-20 22:01 | HP ---
CC: Dr. Hyatt; Dr. Wayne * ADMISSION HISTORY AND PHYSICAL: DATE OF ADMISSION: 06/20/17 PRIMARY CARE PROVIDER: Dr. Hyatt. AIRLINE OPERATIONS AGENT: Dr. Wayne. HEALTHCARE PROXY: Her mother. CODE STATUS: Full. SOURCE OF INFORMATION: History obtained from the interview with the patient and her mother. RELIABILITY: Good. CHIEF COMPLAINT: Nausea, vomiting, and diarrhea. HISTORY OF PRESENT ILLNESS: This is a 26-year-old female with past medical history including type 1 diabetes, currently utilizing an insulin pump, as well as possible history of celiac disease and depression, who was in her usual state of health this morning when she woke up, was at [place] [employer] and noticed that infusion site for insulin was sore approximately 9:30 p.m. She returned home and changed the site and needle and noticed "green yellow pus" like "goo" coming out on the site of the previous needle with the addition of pain. She ate, noticed a substantial bump in her blood sugar to 380, which was abnormal. Checked her blood for ketones which she was able to check at home which were elevated. At noon, she developed nonstop emesis for about 1-1/2 hours associated with watery diarrhea that may have contained mucus, which she notes is not uncommon for her. While at the [employer], she had eaten [place] salad with falafel that was noted be gluten-free and she has had before as well as a gluten-free brownie which she has not had before. On Thursday approximately 6 days prior, she did have gluten accidentally, which caused diarrhea all day. In the past, gluten ingestion has caused additionally constipation or nausea but never vomiting. She denies any fevers. She has had noted chills while in the hospital. She has a mild headache. No cough. She does have rhinorrhea. She denies sick contacts. She has had no travel. She has not been camping. She does not drink well water. She has not eaten any undercooked foods. She notes she always has palpitations as she does now. Has noted a little chest pain earlier that has now resolved. She had noted diarrhea and vomiting when she presented to the hospital, the last episode approximately an hour and a half before evaluated by this author. She has received 2 L of normal saline. At the time of my evaluation, the heart rate remains 140 beats per minute. PAST MEDICAL HISTORY: Type 1 diabetes, on insulin pump; suspected celiac or IBS per the patient's report; depression; history of tachycardia on previous Holter in 2015. MEDICATIONS: Home medications include: 1. Insulin pump since 2005. 2. Zoloft 100 mg daily. 3. Oral contraceptive pills. 4. Valacyclovir p.r.n. 5. Vitamin D 4000 International Units daily. 6. Vitamin B12 unknown dose. 7. Claritin p.r.n. 8. Multivitamin daily. 9. Immune booster vitamin. ALLERGIES: To GLUTEN, BACTRIM causes GI distress. FAMILY HISTORY: IBS, MS in her grandmother and CAD in her father. 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 No tobacco. Rare alcohol use. REVIEW OF SYSTEMS: As per HPI. Otherwise, all other systems negative. PHYSICAL EXAMINATION GENERAL: Well-appearing 26-year-old female, sitting up in bed, interactive, in no apparent distress. VITAL SIGNS: Blood pressure 101/67, heart rate is 140 beats per minute, respiratory rate is 18, her T-max is 98.7, she is 99% on room air. HEENT: Her oropharynx is clear. Moist mucous membranes. Sclerae are anicteric. NECK: She has non-elevated JVD. No cervical or supraclavicular lymphadenopathy. LUNGS: Clear to auscultation. HEART: She has tachycardic heart rate without murmurs, rubs, or gallops. ABDOMEN: Soft. She has tenderness in the left lower quadrant without rebound or guarding, nondistended. In the area of her previous subcutaneous needle for insulin in the right abdomen, there is what feels like a subcutaneous nodule that is non-mobile, tender to palpation, and does not express any pus with deep palpation. EXTREMITIES: Warm and well perfused without clubbing, cyanosis, or edema. She has 2+ peripheral pulses, less than 2-second cap refill. NEUROLOGIC: She is alert and oriented x3. Her cranial nerves II through XII are intact. DIAGNOSTIC STUDIES/LAB DATA: Labs reviewed: Notable for white blood cell count 12.8, which has 95.3% neutrophils. Lactic acid is 4.6. Her potassium is 3.1. Procalcitonin is 1.5. CRP is 13.7. Urine is bland with a specific gravity of 1.008. EKG: Sinus tachycardia, borderline left axis deviation, no ST or T-wave changes. ASSESSMENT AND PLAN: This is a 26-year-old female had sudden-onset nausea, vomiting, diarrhea that has since resolved, found with leukocytosis with left shift as well as tachycardia in the emergency room concerning for sepsis, although no notable source. 1. Systemic inflammatory response syndrome criteria with elevated lactic acidosis, no clear source. Most predominant symptoms have been nausea, vomiting , and diarrhea that is very well maybe viral gastroenteritis with resultant dehydration and tachycardia. Given the left lower quadrant tenderness and no other source concern for sepsis, we will obtain CT abdomen and pelvis with contrast to rule out diverticulitis. Additionally, right upper quadrant soft tissue ultrasound to evaluate subcutaneous nodule in area the patient identified as expressing pus from. I will treat her with ciprofloxacin and Flagyl for presumed intra-abdominal source at this time, which should also cover skin fermin with the ciprofloxacin should the site of subcutaneous needle site be ultimate source. She has received 2 L of normal saline, we will bolus 3 additional liters until heart rate is better controlled. We will place her on telemetry for heart rate monitoring. Stool cultures pending as well as Clostridium difficile and stool ova and parasites. Blood cultures being obtained as well. Repeat lactic acid is ordered for 6:05 now and is being collected. 2. Type 1 diabetes. The patient to continue home insulin pump with our fingerstick checking. 3. Tachycardia as indicated above, suspect in the setting of dehydration and/ or infection. Attempted carotid massage as well as vagal maneuvers without improvement. If the patient's heart does not improve with continued fluid, we will have to consider adenosine challenge to further identify a rhythm. Ayanna- Parkinson- White does not appear to be a play in this patient. She has had palpitations for a long time and has been evaluated by Cardiology and has worn a Holter monitor, notable for tachycardia in the past per the patient's report. 4. Hypokalemia. 40 p.o. potassium now. 5. History of depression. Continue Zoloft. 6. DVT prophylaxis. Low risk. Ambulate ad domenic. [id number]/[facility] #: [id number] [facility]
[2017-06-21] MEDS: Acetaminophen TAB* 325 MG PO PRN ×4 (01:13→23:23)
--- NOTE | 2017-06-21 01:15 | PN ---
Progress Note - Progress Note Date of Service: 06/21/17 Note: Nursing requested eval for low blood pressure and fever 101F. Automated blood pressure was 60/30s while manual was 100/60s. Ms Mock is lying in bed appearing anxious with report of malaise & chills, but otherwise OK. She does admit to LUQ > RUQ pain earlier. CT is notable for pericholecystic fluid and to my eye some GB wall thickening although no stone was seen either on CT or US. Lungs clear. CV TRR. Abdomen: soft, non-distended, moderate RUQ tenderness w/o rebound/rigidity. Extremities: W&D assessment: plan sepsis (tachycardia, tachypnea, leukocytosis, fever) 2nd ?etiology : suspect acalculous cholecystitis vs viral infection : continue IV ciprofloxacin & metronidazole : blood CXs pending : IVFs : recheck lactic : check CXR : UA reviewed, negative : supportive care
[2017-06-21] MEDS: metroNIDAZOLE IV 500 MG/100ML* 500 MG/100 ML BAG IVPB SCH ×3 (04:52→19:31)
[2017-06-21] MEDS: Ondansetron ODT TAB* 4 MG SL PRN (04:56)
[2017-06-21] MEDS: Ciprofloxacin 400MG IVPREMIX(* 400 MG/200 ML BAG IVPB SCH ×2 (05:51→17:17)
[2017-06-21 06:37] LABS: ABS Basophils 0 10^3/ul (0-0.2); ABS Eosinophils 0.3 10^3/ul (0-0.6); ABS Lymphocytes 0.2 10^3/ul (1.0-4.8); ABS Monocytes 0.2 10^3/ul (0-0.8); ABS Neutrophils 18.6 10^3/ul (1.5-7.7); ABS Nucleated RBC 0 10^3/ul; Eosinophil % 1.3 % (0-6); Hematocrit 38 % (35-47); Hemoglobin 12.7 g/dl (12.0-16.0); Lymphocyte % 1.1 % (25-47); Mean Corpuscular HGB Conc 33 g/dl (31-36); Mean Corpuscular Hemoglobin 30 pg (27-31); Mean Corpuscular Volume 89 fL (80-97); Mean Platelet Volume 8.2 um3 (7.4-10.4); Nucleated Red Blood Cells % 0; Platelet Count 183 10^3/ul (150-450); Red Cell Distribution Width 13 % (10.5-15); White Blood Count 19.3 10^3/ul (3.5-10.8)
[2017-06-21] MEDS ORDERED: PROCHLORPERAZINE INJ 5 MG/ML 2 ML VIAL IV PRN (06:51)
[2017-06-21 06:54] LABS: EGFR Non-African American 101.1 (>60)
[2017-06-21] MEDS: Cholecalciferol TAB* 1000 UNITS PO SCH (07:39)
[2017-06-21] MEDS: Sertraline* 100 MG TAB PO SCH (07:40)
[2017-06-21] MEDS: Cyanocobalamin TAB* 500 MCG PO SCH (07:40)
[2017-06-21] MEDS: Multivitamins/Minerals TAB PO SCH (07:40)
[2017-06-21] MEDS: NS 0.9% 1000 ML* 1,000 ML IV SCH ×3 (07:42→15:18)
[2017-06-21] MEDS: [UNRECOGNIZED DRUG - OTHER] PO SCH (08:00)
[2017-06-21] MEDS: NORGEST PO SCH (08:00)
[2017-06-21] MEDS: E ESTRADIOL E ESTRAD PO SCH (08:00)
[2017-06-21] MEDS: INSULIN GLULISINE SUBCUT SCH (08:43)
--- NOTE | 2017-06-21 10:36 | RAD ---
Indication: Sepsis. Single frontal view of the chest performed at 0149 hours was reviewed. Comparison is made with previous exam dated May 29, 2011. No mediastinal shift is noted. Heart is of normal size and configuration. Lung dominguez appear clear. IMPRESSION: NO ACTIVE CARDIOPULMONARY DISEASE IS NOTED.
--- NOTE | 2017-06-21 11:01 | PN ---
Subjective Date of Service: 06/21/17 Interval History: Seen with mother at bedside Had frequent diarrhea overnight and nausea Diarrhea this AM x 4 but has since resolved x several hours Abdominal pain this AM but has resolved completely x 2-3 hours SIMMONS 4 out of 10 last night now resolved No symptom, cough, SOB, CP Tolerated liquids this AM including OJ Objective Active Medications: Acetaminophen (Tylenol Tab*) 650 mg PO Q6H PRN PRN Reason: PAIN Last Admin: 06/21/17 07:39 Dose: 650 mg Cholecalciferol (Vitamin D Tab*) 4,000 units PO DAILY [facility] Last Admin: 06/21/17 07:39 Dose: 4,000 units Cyanocobalamin (Vitamin B12 Tab*) 500 mcg PO DAILY [facility] Last Admin: 06/21/17 07:40 Dose: 500 mcg Metronidazole/Sodium Chloride (Flagyl 500 Mg Ivpb*) 500 mg in 100 mls @ 100 mls /hr IVPB Q8H [facility] Last Admin: 06/21/17 04:52 Dose: 100 mls/hr Ciprofloxacin/Dextrose (Cipro 400 Mg Ivpremix(*)) 400 mg in 200 mls @ 200 mls/ hr IVPB Q12H [facility] Last Admin: 06/21/17 05:51 Dose: 200 mls/hr Sodium Chloride (Ns 0.9% 1000 Ml*) 1,000 mls @ 150 mls/hr IV PER RATE [facility] Multivitamins/Minerals (Theragran/Minerals Tab*) 1 tab PO DAILY [facility] Last Admin: 06/21/17 07:40 Dose: 1 tab Non-Formulary Medication (Insulin Glulisine [Apidra]) 0 units SUBCUT DAILY [facility] Last Admin: 06/21/17 08:43 Dose: Not Given Non-Formulary Medication (L-Norgest/E.Estradiol-E.Estrad [Daysee 0.15-0.03-0.01 Mg Tab]) 1 tab PO DAILY [facility] Last Admin: 06/21/17 08:00 Dose: Not Given Ondansetron HCl (Zofran Inj*) 4 mg IV Q4H PRN PRN Reason: NAUSEA Last Admin: 06/21/17 05:20 Dose: 4 mg Ondansetron HCl (Zofran Odt Tab*) 4 mg SL Q6H PRN PRN Reason: NAUSEA/VOMITING Last Admin: 06/21/17 04:56 Dose: 4 mg Prochlorperazine Edisylate (Compazine Inj*) 10 mg IV Q6H PRN PRN Reason: NAUSEA/VOMITING Last Admin: 06/21/17 07:06 Dose: 10 mg Sertraline HCl (Zoloft*) 100 mg PO DAILY [facility] Last Admin: 06/21/17 07:40 Dose: 100 mg Vital Signs - 8 hr 06/21/17 06/21/17 06/21/17 03:44 04:31 08:00 Temperature 100.4 F Pulse Rate 127 Respiratory 16 Rate Blood Pressure 84/41 95/60 (mmHg) O2 Sat by Pulse 97 98 Oximetry 06/21/17 08:12 Temperature 99.6 F Pulse Rate 133 Respiratory 20 Rate Blood Pressure 90/51 (mmHg) O2 Sat by Pulse 98 Oximetry Oxygen Devices in Use Now: None Appearance: well appearing, NAD Eyes: No Scleral Icterus, PERRLA Ears/Nose/Mouth/Throat: NL Teeth, Lips, Gums, Clear Oropharnyx Neck: NL Appearance and Movements; NL JVP, Trachea Midline, No Thyroid Enlargement, Masses Respiratory: Symmetrical Chest Expansion and Respiratory Effort, Clear to Auscultation Cardiovascular: NL Sounds; No Murmurs; No JVD, - - tachy Abdominal: NL Sounds; No Tenderness; No Distention Lymphatic: No Cervical Adenopathy Extremities: No Edema, No Clubbing, Cyanosis Skin: No Rash or Ulcers Neurological: Alert and Oriented x 3 Result Diagrams: 06/21/17 06:29 06/21/17 06:29 Additional Lab and Data: Lab Results 06/20/17 06/20/17 06/20/17 Range/Units 13:52 14:19 14:19 WBC 12.8 H (3.5-10.8) 10^3/ul RBC 5.01 (4.0-5.4) 10^6/ul Hgb 14.9 (12.0-16.0) g/dl Hct 44 (35-47) % MCV 89 (80-97) fL MCH 30 (27-31) pg MCHC 34 (31-36) g/dl RDW 13 (10.5-15) % Plt Count 260 (150-450) 10^3/ul MPV 8.6 (7.4-10.4) um3 Neut % (Auto) 95.3 H (38-83) % Lymph % (Auto) 4.1 L (25-47) % [place] % (Auto) 0.4 (0-7) % Eos % (Auto) 0.1 (0-6) % Baso % (Auto) 0.1 (0-2) % Absolute Neuts (auto) 12.2 H (1.5-7.7) 10^3/ul Absolute Lymphs (auto) 0.5 L (1.0-4.8) 10^3/ul Absolute Monos (auto) 0 (0-0.8) 10^3/ul Absolute Eos (auto) 0 (0-0.6) 10^3/ul Absolute Basos (auto) 0 (0-0.2) 10^3/ul Absolute Nucleated RBC 0 10^3/ul Nucleated RBC % 0 INR (Anticoag Therapy) 0.86 (0.77-1.02) APTT 21.6 L (26.0-36.3) seconds Sodium (139-145) mmol/L Potassium (3.5-5.0) mmol/L Chloride (101-111) mmol/L Carbon Dioxide (22-32) mmol/L Anion Gap (2-11) mmol/L BUN (6-24) mg/dL Creatinine (0.51-0.95) mg/dL Est GFR ( Amer) (>60) Est GFR (Non-Af Amer) (>60) BUN/Creatinine Ratio (8-20) Glucose (70-100) mg/dL POC Glucose (mg/dL) 169 H (70-100) mg/dL Lactic Acid (0.5-2.0) mmol/L Calcium (8.6-10.3) mg/dL Total Bilirubin (0.2-1.0) mg/dL AST (13-39) U/L ALT (7-52) U/L Alkaline Phosphatase (34-104) U/L Troponin I (<0.04) ng/mL C-Reactive Protein (< 5.00) mg/L Total Protein (6.4-8.9) g/dL Albumin (3.2-5.2) g/dL Globulin (2-4) g/dL Albumin/Globulin Ratio (1-3) Lipase (11.0-82.0) U/L Procalcitonin (<0.6) ng/mL Beta HCG, Quant mIU/mL Urine Color Urine Appearance Urine pH (5-9) Ur Specific [place] (1.010-1.030) Urine Protein (Negative) Urine Ketones (Negative) Urine Blood (Negative) Urine Nitrate (Negative) Urine Bilirubin (Negative) Urine Urobilinogen (Negative) Ur Leukocyte Esterase (Negative) Urine Glucose (Negative) 06/20/17 06/20/17 06/20/17 Range/Units 14:19 14:19 14:19 WBC (3.5-10.8) 10^3/ul RBC (4.0-5.4) 10^6/ul Hgb (12.0-16.0) g/dl Hct (35-47) % MCV (80-97) fL MCH (27-31) pg MCHC (31-36) g/dl RDW (10.5-15) % Plt Count (150-450) 10^3/ul MPV (7.4-10.4) um3 Neut % (Auto) (38-83) % Lymph % (Auto) (25-47) % [place] % (Auto) (0-7) % Eos % (Auto) (0-6) % Baso % (Auto) (0-2) % Absolute Neuts (auto) (1.5-7.7) 10^3/ul Absolute Lymphs (auto) (1.0-4.8) 10^3/ul Absolute Monos (auto) (0-0.8) 10^3/ul Absolute Eos (auto) (0-0.6) 10^3/ul Absolute Basos (auto) (0-0.2) 10^3/ul Absolute Nucleated RBC 10^3/ul Nucleated RBC % INR (Anticoag Therapy) (0.77-1.02) APTT (26.0-36.3) seconds Sodium 141 (139-145) mmol/L Potassium 3.1 L (3.5-5.0) mmol/L Chloride 106 (101-111) mmol/L Carbon Dioxide 22 (22-32) mmol/L Anion Gap 13 H (2-11) mmol/L BUN 12 (6-24) mg/dL Creatinine 0.89 (0.51-0.95) mg/dL Est GFR ( Amer) 100.2 (>60) Est GFR (Non-Af Amer) 77.9 (>60) BUN/Creatinine Ratio 13.5 (8-20) Glucose 135 H (70-100) mg/dL POC Glucose (mg/dL) (70-100) mg/dL Lactic Acid 4.6 H* (0.5-2.0) mmol/L Calcium 9.0 (8.6-10.3) mg/dL Total Bilirubin 0.70 (0.2-1.0) mg/dL AST 17 (13-39) U/L ALT 13 (7-52) U/L Alkaline Phosphatase 70 (34-104) U/L Troponin I 0.00 (<0.04) ng/mL C-Reactive Protein 13.71 H (< 5.00) mg/L Total Protein 7.0 (6.4-8.9) g/dL Albumin 3.8 (3.2-5.2) g/dL Globulin 3.2 (2-4) g/dL Albumin/Globulin Ratio 1.2 (1-3) Lipase 13 (11.0-82.0) U/L Procalcitonin 1.5 H (<0.6) ng/mL Beta HCG, Quant < 0.60 mIU/mL Urine Color Urine Appearance Urine pH (5-9) Ur Specific [place] (1.010-1.030) Urine Protein (Negative) Urine Ketones (Negative) Urine Blood (Negative) Urine Nitrate (Negative) Urine Bilirubin (Negative) Urine Urobilinogen (Negative) Ur Leukocyte Esterase (Negative) Urine Glucose (Negative) 06/20/17 06/20/17 06/20/17 Range/Units 15:26 15:50 16:10 WBC (3.5-10.8) 10^3/ul RBC (4.0-5.4) 10^6/ul Hgb (12.0-16.0) g/dl Hct (35-47) % MCV (80-97) fL MCH (27-31) pg MCHC (31-36) g/dl RDW (10.5-15) % Plt Count (150-450) 10^3/ul MPV (7.4-10.4) um3 Neut % (Auto) (38-83) % Lymph % (Auto) (25-47) % [place] % (Auto) (0-7) % Eos % (Auto) (0-6) % Baso % (Auto) (0-2) % Absolute Neuts (auto) (1.5-7.7) 10^3/ul Absolute Lymphs (auto) (1.0-4.8) 10^3/ul Absolute Monos (auto) (0-0.8) 10^3/ul Absolute Eos (auto) (0-0.6) 10^3/ul Absolute Basos (auto) (0-0.2) 10^3/ul Absolute Nucleated RBC 10^3/ul Nucleated RBC % INR (Anticoag Therapy) (0.77-1.02) APTT (26.0-36.3) seconds Sodium (139-145) mmol/L Potassium (3.5-5.0) mmol/L Chloride (101-111) mmol/L Carbon Dioxide (22-32) mmol/L Anion Gap (2-11) mmol/L BUN (6-24) mg/dL Creatinine (0.51-0.95) mg/dL Est GFR ( Amer) (>60) Est GFR (Non-Af Amer) (>60) BUN/Creatinine Ratio (8-20) Glucose (70-100) mg/dL POC Glucose (mg/dL) 89 79 (70-100) mg/dL Lactic Acid (0.5-2.0) mmol/L Calcium (8.6-10.3) mg/dL Total Bilirubin (0.2-1.0) mg/dL AST (13-39) U/L ALT (7-52) U/L Alkaline Phosphatase (34-104) U/L Troponin I (<0.04) ng/mL C-Reactive Protein (< 5.00) mg/L Total Protein (6.4-8.9) g/dL Albumin (3.2-5.2) g/dL Globulin (2-4) g/dL Albumin/Globulin Ratio (1-3) Lipase (11.0-82.0) U/L Procalcitonin (<0.6) ng/mL Beta HCG, Quant mIU/mL Urine Color Straw Urine Appearance Clear Urine pH 5.0 (5-9) Ur Specific [place] 1.008 L (1.010-1.030) Urine Protein Negative (Negative) Urine Ketones Negative (Negative) Urine Blood Negative (Negative) Urine Nitrate Negative (Negative) Urine Bilirubin Negative (Negative) Urine Urobilinogen Negative (Negative) Ur Leukocyte Esterase Negative (Negative) Urine Glucose Negative (Negative) 06/20/17 06/20/17 Range/Units 16:18 16:53 WBC (3.5-10.8) 10^3/ul RBC (4.0-5.4) 10^6/ul Hgb (12.0-16.0) g/dl Hct (35-47) % MCV (80-97) fL MCH (27-31) pg MCHC (31-36) g/dl RDW (10.5-15) % Plt Count (150-450) 10^3/ul MPV (7.4-10.4) um3 Neut % (Auto) (38-83) % Lymph % (Auto) (25-47) % [place] % (Auto) (0-7) % Eos % (Auto) (0-6) % Baso % (Auto) (0-2) % Absolute Neuts (auto) (1.5-7.7) 10^3/ul Absolute Lymphs (auto) (1.0-4.8) 10^3/ul Absolute Monos (auto) (0-0.8) 10^3/ul Absolute Eos (auto) (0-0.6) 10^3/ul Absolute Basos (auto) (0-0.2) 10^3/ul Absolute Nucleated RBC 10^3/ul Nucleated RBC % INR (Anticoag Therapy) (0.77-1.02) APTT (26.0-36.3) seconds Sodium (139-145) mmol/L Potassium (3.5-5.0) mmol/L Chloride (101-111) mmol/L Carbon Dioxide (22-32) mmol/L Anion Gap (2-11) mmol/L BUN (6-24) mg/dL Creatinine (0.51-0.95) mg/dL Est GFR ( Amer) (>60) Est GFR (Non-Af Amer) (>60) BUN/Creatinine Ratio (8-20) Glucose (70-100) mg/dL POC Glucose (mg/dL) 53 L 172 H (70-100) mg/dL Lactic Acid (0.5-2.0) mmol/L Calcium (8.6-10.3) mg/dL Total Bilirubin (0.2-1.0) mg/dL AST (13-39) U/L ALT (7-52) U/L Alkaline Phosphatase (34-104) U/L Troponin I (<0.04) ng/mL C-Reactive Protein (< 5.00) mg/L Total Protein (6.4-8.9) g/dL Albumin (3.2-5.2) g/dL Globulin (2-4) g/dL Albumin/Globulin Ratio (1-3) Lipase (11.0-82.0) U/L Procalcitonin (<0.6) ng/mL Beta HCG, Quant mIU/mL Urine Color Urine Appearance Urine pH (5-9) Ur Specific [place] (1.010-1.030) Urine Protein (Negative) Urine Ketones (Negative) Urine Blood (Negative) Urine Nitrate (Negative) Urine Bilirubin (Negative) Urine Urobilinogen (Negative) Ur Leukocyte Esterase (Negative) Urine Glucose (Negative) Assess/Plan/Problems-Billing Assessment: 26 yo F h/o DM type I and celiacs vs IBS pw sudden onset diarrhea, N/V found with tachycardia/fever/leukocytosis - Patient Problems (1) Sepsis Comment: Suspect bacteria but no identified source doubt meningitis w/out SIMMONS No symptoms US soft tissue did not identify any drainable collection in area pt thought she saw "pus" Pericholecystic fluid on CT A/P but no abd pain on exam today. CXR wnl and urine wnl, C. diff negative, Blood cultures remain pending ( discussed with lab) WBC up today but GI symptoms resolving and feels better. Check US RUQ to eval gallbladder c/w cipro/flagyl as she improves No LP now but consider if SIMMONS returns and no source is identified (2) Tachycardia Comment: Pt and mother note her baseline is around 110. Increase NS to 150cc/hr Monitor on tele (3) Diabetes Comment: Patient managing with insulin pump
--- NOTE | 2017-06-21 14:49 | RAD ---
Indication: Right upper quadrant pain. Real-time sonography of the right upper quadrant was performed. The liver measures 21 cm in length. No focal lesions or intrahepatic ductal dilatation is noted. The gallbladder is contracted with no definite gallstones although the lumen cannot be well evaluated. Pericholecystic fluid is noted. Right kidney measures 11.5 x 6.7 x 4.8 cm. The pancreas demonstrates no mass or pancreatic duct dilatation. IMPRESSION: Partially contracted gallbladder with pericholecystic fluid.
[2017-06-22] MEDS: NS 0.9% 1000 ML* 1,000 ML IV SCH ×2 (00:31→09:34)
[2017-06-22] MEDS: metroNIDAZOLE IV 500 MG/100ML* 500 MG/100 ML BAG IVPB SCH ×3 (04:13→21:00)
[2017-06-22] MEDS: Ciprofloxacin 400MG IVPREMIX(* 400 MG/200 ML BAG IVPB SCH ×2 (05:26→16:53)
[2017-06-22] MEDS: Acetaminophen TAB* 325 MG PO PRN (06:43)
[2017-06-22 06:54] LABS: ABS Basophils 0.1 10^3/ul (0-0.2); ABS Lymphocytes 1.1 10^3/ul (1.0-4.8); ABS Monocytes 0.4 10^3/ul (0-0.8); ABS Neutrophils 15.1 10^3/ul (1.5-7.7); ABS Nucleated RBC 0 10^3/ul; Eosinophil % 5.5 % (0-6); Hematocrit 39 % (35-47); Hemoglobin 13.1 g/dl (12.0-16.0); Mean Corpuscular HGB Conc 34 g/dl (31-36); Mean Corpuscular Hemoglobin 30 pg (27-31); Mean Corpuscular Volume 88 fL (80-97); Mean Platelet Volume 8.7 um3 (7.4-10.4); Nucleated Red Blood Cells % 0; Platelet Count 129 10^3/ul (150-450); Red Blood Count 4.43 10^6/ul (4.0-5.4); Red Cell Distribution Width 13 % (10.5-15); White Blood Count 17.7 10^3/ul (3.5-10.8)
[2017-06-22] MEDS: Multivitamins/Minerals TAB PO SCH (07:41)
[2017-06-22] MEDS: Sertraline* 100 MG TAB PO SCH (07:41)
[2017-06-22] MEDS: Cyanocobalamin TAB* 500 MCG PO SCH (07:41)
[2017-06-22] MEDS: Cholecalciferol TAB* 1000 UNITS PO SCH (07:41)
[2017-06-22] MEDS: INSULIN GLULISINE SUBCUT SCH (07:47)
[2017-06-22] MEDS: NORGEST PO SCH (07:47)
[2017-06-22] MEDS: [UNRECOGNIZED DRUG - OTHER] PO SCH (07:47)
[2017-06-22] MEDS: E ESTRADIOL E ESTRAD PO SCH (07:47)
--- NOTE | 2017-06-22 16:18 | PN ---
Subjective Date of Service: 06/22/17 Interval History: C/O diffuse myalgias/arthralgias, overall somewhat better than yesterday. Appetite fair. No more diarrhea or emesis. She attributes her diarrhea to celiac disease but she has never had emesis from celiac disease in the past. Objective Active Medications: Acetaminophen (Tylenol Tab*) 650 mg PO Q6H PRN PRN Reason: PAIN Last Admin: 06/22/17 06:43 Dose: 650 mg Cholecalciferol (Vitamin D Tab*) 4,000 units PO DAILY [facility] Last Admin: 06/22/17 07:41 Dose: 4,000 units Cosyntropin (Cosyntropin*) 0.25 mg IV ONCE ONE Stop: 06/23/17 07:31 Cyanocobalamin (Vitamin B12 Tab*) 500 mcg PO DAILY [facility] Last Admin: 06/22/17 07:41 Dose: 500 mcg Metronidazole/Sodium Chloride (Flagyl 500 Mg Ivpb*) 500 mg in 100 mls @ 100 mls /hr IVPB Q8H [facility] Last Admin: 06/22/17 11:45 Dose: 100 mls/hr Ciprofloxacin/Dextrose (Cipro 400 Mg Ivpremix(*)) 400 mg in 200 mls @ 200 mls/ hr IVPB Q12H [facility] Last Admin: 06/22/17 05:26 Dose: 200 mls/hr Multivitamins/Minerals (Theragran/Minerals Tab*) 1 tab PO DAILY [facility] Last Admin: 06/22/17 07:41 Dose: 1 tab Non-Formulary Medication (Insulin Glulisine [Apidra]) 0 units SUBCUT DAILY [facility] Last Admin: 06/22/17 07:47 Dose: Not Given Non-Formulary Medication (L-Norgest/E.Estradiol-E.Estrad [Daysee 0.15-0.03-0.01 Mg Tab]) 1 tab PO DAILY [facility] Last Admin: 06/22/17 07:47 Dose: Not Given Ondansetron HCl (Zofran Inj*) 4 mg IV Q4H PRN PRN Reason: NAUSEA Last Admin: 06/21/17 05:20 Dose: 4 mg Ondansetron HCl (Zofran Odt Tab*) 4 mg SL Q6H PRN PRN Reason: NAUSEA/VOMITING Last Admin: 06/21/17 04:56 Dose: 4 mg Potassium Chloride (Klor Con Er Tab*) 20 meq PO TID [facility] Prochlorperazine Edisylate (Compazine Inj*) 10 mg IV Q6H PRN PRN Reason: NAUSEA/VOMITING Last Admin: 06/21/17 07:06 Dose: 10 mg Sertraline HCl (Zoloft*) 100 mg PO DAILY [facility] Last Admin: 06/22/17 07:41 Dose: 100 mg Vital Signs - 8 hr 06/22/17 06/22/17 12:00 15:37 Temperature 98.3 F Pulse Rate 103 90 Respiratory 18 20 Rate Blood Pressure 121/67 114/62 (mmHg) O2 Sat by Pulse 100 100 Oximetry Oxygen Devices in Use Now: None Appearance: Alert, supine in bed. In good spirits. Looks comfortable. Eyes: No Scleral Icterus Abdominal: NL Sounds; No Tenderness; No Distention, No Hepatosplenomegaly, - Extremities: No Clubbing, Cyanosis, - - 1-2+ edema both hands Skin: No Rash or Ulcers, No Nodules or Sclerosis, - - Spot on abdomen completely healed Neurological: Alert and Oriented x 3, NL Sensation Result Diagrams: 06/22/17 06:41 06/22/17 05:42 Additional Lab and Data: Lab Results 06/20/17 06/20/17 06/20/17 Range/Units 13:52 14:19 14:19 WBC 12.8 H (3.5-10.8) 10^3/ul RBC 5.01 (4.0-5.4) 10^6/ul Hgb 14.9 (12.0-16.0) g/dl Hct 44 (35-47) % MCV 89 (80-97) fL MCH 30 (27-31) pg MCHC 34 (31-36) g/dl RDW 13 (10.5-15) % Plt Count 260 (150-450) 10^3/ul MPV 8.6 (7.4-10.4) um3 Neut % (Auto) 95.3 H (38-83) % Lymph % (Auto) 4.1 L (25-47) % [place] % (Auto) 0.4 (0-7) % Eos % (Auto) 0.1 (0-6) % Baso % (Auto) 0.1 (0-2) % Absolute Neuts (auto) 12.2 H (1.5-7.7) 10^3/ul Absolute Lymphs (auto) 0.5 L (1.0-4.8) 10^3/ul Absolute Monos (auto) 0 (0-0.8) 10^3/ul Absolute Eos (auto) 0 (0-0.6) 10^3/ul Absolute Basos (auto) 0 (0-0.2) 10^3/ul Absolute Nucleated RBC 0 10^3/ul Nucleated RBC % 0 INR (Anticoag Therapy) 0.86 (0.77-1.02) APTT 21.6 L (26.0-36.3) seconds Sodium (139-145) mmol/L Potassium (3.5-5.0) mmol/L Chloride (101-111) mmol/L Carbon Dioxide (22-32) mmol/L Anion Gap (2-11) mmol/L BUN (6-24) mg/dL Creatinine (0.51-0.95) mg/dL Est GFR ( Amer) (>60) Est GFR (Non-Af Amer) (>60) BUN/Creatinine Ratio (8-20) Glucose (70-100) mg/dL POC Glucose (mg/dL) 169 H (70-100) mg/dL Lactic Acid (0.5-2.0) mmol/L Calcium (8.6-10.3) mg/dL Total Bilirubin (0.2-1.0) mg/dL AST (13-39) U/L ALT (7-52) U/L Alkaline Phosphatase (34-104) U/L Troponin I (<0.04) ng/mL C-Reactive Protein (< 5.00) mg/L Total Protein (6.4-8.9) g/dL Albumin (3.2-5.2) g/dL Globulin (2-4) g/dL Albumin/Globulin Ratio (1-3) Lipase (11.0-82.0) U/L Procalcitonin (<0.6) ng/mL Beta HCG, Quant mIU/mL Urine Color Urine Appearance Urine pH (5-9) Ur Specific [place] (1.010-1.030) Urine Protein (Negative) Urine Ketones (Negative) Urine Blood (Negative) Urine Nitrate (Negative) Urine Bilirubin (Negative) Urine Urobilinogen (Negative) Ur Leukocyte Esterase (Negative) Urine Glucose (Negative) 06/20/17 06/20/17 06/20/17 Range/Units 14:19 14:19 14:19 WBC (3.5-10.8) 10^3/ul RBC (4.0-5.4) 10^6/ul Hgb (12.0-16.0) g/dl Hct (35-47) % MCV (80-97) fL MCH (27-31) pg MCHC (31-36) g/dl RDW (10.5-15) % Plt Count (150-450) 10^3/ul MPV (7.4-10.4) um3 Neut % (Auto) (38-83) % Lymph % (Auto) (25-47) % [place] % (Auto) (0-7) % Eos % (Auto) (0-6) % Baso % (Auto) (0-2) % Absolute Neuts (auto) (1.5-7.7) 10^3/ul Absolute Lymphs (auto) (1.0-4.8) 10^3/ul Absolute Monos (auto) (0-0.8) 10^3/ul Absolute Eos (auto) (0-0.6) 10^3/ul Absolute Basos (auto) (0-0.2) 10^3/ul Absolute Nucleated RBC 10^3/ul Nucleated RBC % INR (Anticoag Therapy) (0.77-1.02) APTT (26.0-36.3) seconds Sodium 141 (139-145) mmol/L Potassium 3.1 L (3.5-5.0) mmol/L Chloride 106 (101-111) mmol/L Carbon Dioxide 22 (22-32) mmol/L Anion Gap 13 H (2-11) mmol/L BUN 12 (6-24) mg/dL Creatinine 0.89 (0.51-0.95) mg/dL Est GFR ( Amer) 100.2 (>60) Est GFR (Non-Af Amer) 77.9 (>60) BUN/Creatinine Ratio 13.5 (8-20) Glucose 135 H (70-100) mg/dL POC Glucose (mg/dL) (70-100) mg/dL Lactic Acid 4.6 H* (0.5-2.0) mmol/L Calcium 9.0 (8.6-10.3) mg/dL Total Bilirubin 0.70 (0.2-1.0) mg/dL AST 17 (13-39) U/L ALT 13 (7-52) U/L Alkaline Phosphatase 70 (34-104) U/L Troponin I 0.00 (<0.04) ng/mL C-Reactive Protein 13.71 H (< 5.00) mg/L Total Protein 7.0 (6.4-8.9) g/dL Albumin 3.8 (3.2-5.2) g/dL Globulin 3.2 (2-4) g/dL Albumin/Globulin Ratio 1.2 (1-3) Lipase 13 (11.0-82.0) U/L Procalcitonin 1.5 H (<0.6) ng/mL Beta HCG, Quant < 0.60 mIU/mL Urine Color Urine Appearance Urine pH (5-9) Ur Specific [place] (1.010-1.030) Urine Protein (Negative) Urine Ketones (Negative) Urine Blood (Negative) Urine Nitrate (Negative) Urine Bilirubin (Negative) Urine Urobilinogen (Negative) Ur Leukocyte Esterase (Negative) Urine Glucose (Negative) 06/20/17 06/20/17 06/20/17 Range/Units 15:26 15:50 16:10 WBC (3.5-10.8) 10^3/ul RBC (4.0-5.4) 10^6/ul Hgb (12.0-16.0) g/dl Hct (35-47) % MCV (80-97) fL MCH (27-31) pg MCHC (31-36) g/dl RDW (10.5-15) % Plt Count (150-450) 10^3/ul MPV (7.4-10.4) um3 Neut % (Auto) (38-83) % Lymph % (Auto) (25-47) % [place] % (Auto) (0-7) % Eos % (Auto) (0-6) % Baso % (Auto) (0-2) % Absolute Neuts (auto) (1.5-7.7) 10^3/ul Absolute Lymphs (auto) (1.0-4.8) 10^3/ul Absolute Monos (auto) (0-0.8) 10^3/ul Absolute Eos (auto) (0-0.6) 10^3/ul Absolute Basos (auto) (0-0.2) 10^3/ul Absolute Nucleated RBC 10^3/ul Nucleated RBC % INR (Anticoag Therapy) (0.77-1.02) APTT (26.0-36.3) seconds Sodium (139-145) mmol/L Potassium (3.5-5.0) mmol/L Chloride (101-111) mmol/L Carbon Dioxide (22-32) mmol/L Anion Gap (2-11) mmol/L BUN (6-24) mg/dL Creatinine (0.51-0.95) mg/dL Est GFR ( Amer) (>60) Est GFR (Non-Af Amer) (>60) BUN/Creatinine Ratio (8-20) Glucose (70-100) mg/dL POC Glucose (mg/dL) 89 79 (70-100) mg/dL Lactic Acid (0.5-2.0) mmol/L Calcium (8.6-10.3) mg/dL Total Bilirubin (0.2-1.0) mg/dL AST (13-39) U/L ALT (7-52) U/L Alkaline Phosphatase (34-104) U/L Troponin I (<0.04) ng/mL C-Reactive Protein (< 5.00) mg/L Total Protein (6.4-8.9) g/dL Albumin (3.2-5.2) g/dL Globulin (2-4) g/dL Albumin/Globulin Ratio (1-3) Lipase (11.0-82.0) U/L Procalcitonin (<0.6) ng/mL Beta HCG, Quant mIU/mL Urine Color Straw Urine Appearance Clear Urine pH 5.0 (5-9) Ur Specific [place] 1.008 L (1.010-1.030) Urine Protein Negative (Negative) Urine Ketones Negative (Negative) Urine Blood Negative (Negative) Urine Nitrate Negative (Negative) Urine Bilirubin Negative (Negative) Urine Urobilinogen Negative (Negative) Ur Leukocyte Esterase Negative (Negative) Urine Glucose Negative (Negative) 06/20/17 06/20/17 Range/Units 16:18 16:53 WBC (3.5-10.8) 10^3/ul RBC (4.0-5.4) 10^6/ul Hgb (12.0-16.0) g/dl Hct (35-47) % MCV (80-97) fL MCH (27-31) pg MCHC (31-36) g/dl RDW (10.5-15) % Plt Count (150-450) 10^3/ul MPV (7.4-10.4) um3 Neut % (Auto) (38-83) % Lymph % (Auto) (25-47) % [place] % (Auto) (0-7) % Eos % (Auto) (0-6) % Baso % (Auto) (0-2) % Absolute Neuts (auto) (1.5-7.7) 10^3/ul Absolute Lymphs (auto) (1.0-4.8) 10^3/ul Absolute Monos (auto) (0-0.8) 10^3/ul Absolute Eos (auto) (0-0.6) 10^3/ul Absolute Basos (auto) (0-0.2) 10^3/ul Absolute Nucleated RBC 10^3/ul Nucleated RBC % INR (Anticoag Therapy) (0.77-1.02) APTT (26.0-36.3) seconds Sodium (139-145) mmol/L Potassium (3.5-5.0) mmol/L Chloride (101-111) mmol/L Carbon Dioxide (22-32) mmol/L Anion Gap (2-11) mmol/L BUN (6-24) mg/dL Creatinine (0.51-0.95) mg/dL Est GFR ( Amer) (>60) Est GFR (Non-Af Amer) (>60) BUN/Creatinine Ratio (8-20) Glucose (70-100) mg/dL POC Glucose (mg/dL) 53 L 172 H (70-100) mg/dL Lactic Acid (0.5-2.0) mmol/L Calcium (8.6-10.3) mg/dL Total Bilirubin (0.2-1.0) mg/dL AST (13-39) U/L ALT (7-52) U/L Alkaline Phosphatase (34-104) U/L Troponin I (<0.04) ng/mL C-Reactive Protein (< 5.00) mg/L Total Protein (6.4-8.9) g/dL Albumin (3.2-5.2) g/dL Globulin (2-4) g/dL Albumin/Globulin Ratio (1-3) Lipase (11.0-82.0) U/L Procalcitonin (<0.6) ng/mL Beta HCG, Quant mIU/mL Urine Color Urine Appearance Urine pH (5-9) Ur Specific [place] (1.010-1.030) Urine Protein (Negative) Urine Ketones (Negative) Urine Blood (Negative) Urine Nitrate (Negative) Urine Bilirubin (Negative) Urine Urobilinogen (Negative) Ur Leukocyte Esterase (Negative) Urine Glucose (Negative) Assess/Plan/Problems-Billing Assessment: 26 yo F h/o DM type I and celiacs vs IBS pw sudden onset diarrhea, N/V found with tachycardia/fever/leukocytosis - Patient Problems (1) Sepsis Current Visit: Yes Status: Acute Comment: Myalgias, emesis point to possible viral illness despite abnl procalciatonin. CXR wnl and urine wnl, C. diff negative, Blood cultures remain pending US RUQ showed contracted GB, some pericholecystic fluid. c/w cipro/flagyl (2) Diabetes Current Visit: Yes Status: Acute Code(s): E11.9 - TYPE 2 DIABETES MELLITUS WITHOUT COMPLICATIONS SNOMED Code(s): 45888760 Comment: Patient managing with insulin pump (3) Tachycardia Current Visit: Yes Status: Acute Code(s): R00.0 - TACHYCARDIA, UNSPECIFIED SNOMED Code(s): 5401985 Comment: Pt and mother note her baseline is around 110. Increase NS to 150cc/hr Monitor on tele (4) Celiac disease Current Visit: Yes Status: Acute Code(s): K90.0 - CELIAC DISEASE SNOMED Code(s): 050000395 Comment: Not clear if this is a well-established dx. Pt on reg diet, making her own choices. (5) Malaise Current Visit: Yes Status: Acute Code(s): R53.81 - OTHER MALAISE SNOMED Code(s): 700520959 Comment: Pt concerned about frequent presence of ketones in urine and/ot blood, was told by her previous string studies director it could be [place]'s disease ( second hand to me). Cortophyin stim test 06/23.
[2017-06-22] MEDS: Potassium Chlor TAB* 20 MEQ TAB.ER PO SCH ×2 (16:53→20:36)
[2017-06-23] MEDS: metroNIDAZOLE IV 500 MG/100ML* 500 MG/100 ML BAG IVPB SCH (04:33)
[2017-06-23] MEDS: Ciprofloxacin 400MG IVPREMIX(* 400 MG/200 ML BAG IVPB SCH (05:50)
[2017-06-23] MEDS ORDERED: Cosyntropin* 0.25 MG VIAL IV ONE (07:30)
[2017-06-23] MEDS: INSULIN GLULISINE SUBCUT SCH (08:45)
[2017-06-23] MEDS: NORGEST PO SCH (08:46)
[2017-06-23] MEDS: E ESTRADIOL E ESTRAD PO SCH (08:46)
[2017-06-23] MEDS: [UNRECOGNIZED DRUG - OTHER] PO SCH (08:46)
[2017-06-23] MEDS: Multivitamins/Minerals TAB PO SCH (09:00)
[2017-06-23] MEDS: Cholecalciferol TAB* 1000 UNITS PO SCH (09:00)
[2017-06-23] MEDS: Cyanocobalamin TAB* 500 MCG PO SCH (09:00)
[2017-06-23] MEDS: Potassium Chlor TAB* 20 MEQ TAB.ER PO SCH ×3 (09:00→20:50)
[2017-06-23] MEDS: Sertraline* 100 MG TAB PO SCH (09:00)
--- NOTE | 2017-06-23 11:22 | PN ---
Subjective Date of Service: 06/23/17 Interval History: Brief episode of mild chest pressure early this AM, gone now. Overall feels better. No new c/o. Objective Active Medications: Acetaminophen (Tylenol Tab*) 650 mg PO Q6H PRN PRN Reason: PAIN Last Admin: 06/22/17 06:43 Dose: 650 mg Cholecalciferol (Vitamin D Tab*) 4,000 units PO DAILY [facility] Last Admin: 06/23/17 09:00 Dose: 4,000 units Cyanocobalamin (Vitamin B12 Tab*) 500 mcg PO DAILY [facility] Last Admin: 06/23/17 09:00 Dose: 500 mcg Metronidazole/Sodium Chloride (Flagyl 500 Mg Ivpb*) 500 mg in 100 mls @ 100 mls /hr IVPB Q8H [facility] Last Admin: 06/23/17 04:33 Dose: 100 mls/hr Ciprofloxacin/Dextrose (Cipro 400 Mg Ivpremix(*)) 400 mg in 200 mls @ 200 mls/ hr IVPB Q12H [facility] Last Admin: 06/23/17 05:50 Dose: 200 mls/hr Multivitamins/Minerals (Theragran/Minerals Tab*) 1 tab PO DAILY [facility] Last Admin: 06/23/17 09:00 Dose: 1 tab Non-Formulary Medication (Insulin Glulisine [Apidra]) 0 units SUBCUT DAILY [facility] Last Admin: 06/23/17 08:45 Dose: Not Given Non-Formulary Medication (L-Norgest/E.Estradiol-E.Estrad [Daysee 0.15-0.03-0.01 Mg Tab]) 1 tab PO DAILY [facility] Last Admin: 06/23/17 08:46 Dose: Not Given Ondansetron HCl (Zofran Inj*) 4 mg IV Q4H PRN PRN Reason: NAUSEA Last Admin: 06/21/17 05:20 Dose: 4 mg Ondansetron HCl (Zofran Odt Tab*) 4 mg SL Q6H PRN PRN Reason: NAUSEA/VOMITING Last Admin: 06/21/17 04:56 Dose: 4 mg Potassium Chloride (Klor Con Er Tab*) 20 meq PO TID [facility] Last Admin: 06/23/17 09:00 Dose: 20 meq Prochlorperazine Edisylate (Compazine Inj*) 10 mg IV Q6H PRN PRN Reason: NAUSEA/VOMITING Last Admin: 06/21/17 07:06 Dose: 10 mg Sertraline HCl (Zoloft*) 100 mg PO DAILY [facility] Last Admin: 06/23/17 09:00 Dose: 100 mg Vital Signs - 8 hr 06/23/17 06/23/17 06/23/17 04:07 08:00 08:01 Temperature 98.3 F 98.2 F Pulse Rate 88 77 Respiratory 16 18 20 Rate Blood Pressure 91/57 116/74 (mmHg) O2 Sat by Pulse 96 96 99 Oximetry Oxygen Devices in Use Now: None Appearance: Alert, supine in bed. In good spirits. Looks comfortable. Eyes: No Scleral Icterus Neck: NL Appearance and Movements; NL JVP, No Thyroid Enlargement, Masses Respiratory: Symmetrical Chest Expansion and Respiratory Effort, Clear to Auscultation, Clear to Percussion Extremities: No Clubbing, Cyanosis, - - 1-2+ hand edema BL Skin: No Rash or Ulcers, No Nodules or Sclerosis, - Neurological: Alert and Oriented x 3, NL Sensation Result Diagrams: 06/22/17 06:41 06/22/17 05:42 Additional Lab and Data: Lab Results 06/20/17 06/20/17 06/20/17 Range/Units 13:52 14:19 14:19 WBC 12.8 H (3.5-10.8) 10^3/ul RBC 5.01 (4.0-5.4) 10^6/ul Hgb 14.9 (12.0-16.0) g/dl Hct 44 (35-47) % MCV 89 (80-97) fL MCH 30 (27-31) pg MCHC 34 (31-36) g/dl RDW 13 (10.5-15) % Plt Count 260 (150-450) 10^3/ul MPV 8.6 (7.4-10.4) um3 Neut % (Auto) 95.3 H (38-83) % Lymph % (Auto) 4.1 L (25-47) % Kimball % (Auto) 0.4 (0-7) % Eos % (Auto) 0.1 (0-6) % Baso % (Auto) 0.1 (0-2) % Absolute Neuts (auto) 12.2 H (1.5-7.7) 10^3/ul Absolute Lymphs (auto) 0.5 L (1.0-4.8) 10^3/ul Absolute Monos (auto) 0 (0-0.8) 10^3/ul Absolute Eos (auto) 0 (0-0.6) 10^3/ul Absolute Basos (auto) 0 (0-0.2) 10^3/ul Absolute Nucleated RBC 0 10^3/ul Nucleated RBC % 0 INR (Anticoag Therapy) 0.86 (0.77-1.02) APTT 21.6 L (26.0-36.3) seconds Sodium (139-145) mmol/L Potassium (3.5-5.0) mmol/L Chloride (101-111) mmol/L Carbon Dioxide (22-32) mmol/L Anion Gap (2-11) mmol/L BUN (6-24) mg/dL Creatinine (0.51-0.95) mg/dL Est GFR ( Amer) (>60) Est GFR (Non-Af Amer) (>60) BUN/Creatinine Ratio (8-20) Glucose (70-100) mg/dL POC Glucose (mg/dL) 169 H (70-100) mg/dL Lactic Acid (0.5-2.0) mmol/L Calcium (8.6-10.3) mg/dL Total Bilirubin (0.2-1.0) mg/dL AST (13-39) U/L ALT (7-52) U/L Alkaline Phosphatase (34-104) U/L Troponin I (<0.04) ng/mL C-Reactive Protein (< 5.00) mg/L Total Protein (6.4-8.9) g/dL Albumin (3.2-5.2) g/dL Globulin (2-4) g/dL Albumin/Globulin Ratio (1-3) Lipase (11.0-82.0) U/L Procalcitonin (<0.6) ng/mL Beta HCG, Quant mIU/mL Urine Color Urine Appearance Urine pH (5-9) Ur Specific [place] (1.010-1.030) Urine Protein (Negative) Urine Ketones (Negative) Urine Blood (Negative) Urine Nitrate (Negative) Urine Bilirubin (Negative) Urine Urobilinogen (Negative) Ur Leukocyte Esterase (Negative) Urine Glucose (Negative) 06/20/17 06/20/17 06/20/17 Range/Units 14:19 14:19 14:19 WBC (3.5-10.8) 10^3/ul RBC (4.0-5.4) 10^6/ul Hgb (12.0-16.0) g/dl Hct (35-47) % MCV (80-97) fL MCH (27-31) pg MCHC (31-36) g/dl RDW (10.5-15) % Plt Count (150-450) 10^3/ul MPV (7.4-10.4) um3 Neut % (Auto) (38-83) % Lymph % (Auto) (25-47) % Kimball % (Auto) (0-7) % Eos % (Auto) (0-6) % Baso % (Auto) (0-2) % Absolute Neuts (auto) (1.5-7.7) 10^3/ul Absolute Lymphs (auto) (1.0-4.8) 10^3/ul Absolute Monos (auto) (0-0.8) 10^3/ul Absolute Eos (auto) (0-0.6) 10^3/ul Absolute Basos (auto) (0-0.2) 10^3/ul Absolute Nucleated RBC 10^3/ul Nucleated RBC % INR (Anticoag Therapy) (0.77-1.02) APTT (26.0-36.3) seconds Sodium 141 (139-145) mmol/L Potassium 3.1 L (3.5-5.0) mmol/L Chloride 106 (101-111) mmol/L Carbon Dioxide 22 (22-32) mmol/L Anion Gap 13 H (2-11) mmol/L BUN 12 (6-24) mg/dL Creatinine 0.89 (0.51-0.95) mg/dL Est GFR ( Amer) 100.2 (>60) Est GFR (Non-Af Amer) 77.9 (>60) BUN/Creatinine Ratio 13.5 (8-20) Glucose 135 H (70-100) mg/dL POC Glucose (mg/dL) (70-100) mg/dL Lactic Acid 4.6 H* (0.5-2.0) mmol/L Calcium 9.0 (8.6-10.3) mg/dL Total Bilirubin 0.70 (0.2-1.0) mg/dL AST 17 (13-39) U/L ALT 13 (7-52) U/L Alkaline Phosphatase 70 (34-104) U/L Troponin I 0.00 (<0.04) ng/mL C-Reactive Protein 13.71 H (< 5.00) mg/L Total Protein 7.0 (6.4-8.9) g/dL Albumin 3.8 (3.2-5.2) g/dL Globulin 3.2 (2-4) g/dL Albumin/Globulin Ratio 1.2 (1-3) Lipase 13 (11.0-82.0) U/L Procalcitonin 1.5 H (<0.6) ng/mL Beta HCG, Quant < 0.60 mIU/mL Urine Color Urine Appearance Urine pH (5-9) Ur Specific [place] (1.010-1.030) Urine Protein (Negative) Urine Ketones (Negative) Urine Blood (Negative) Urine Nitrate (Negative) Urine Bilirubin (Negative) Urine Urobilinogen (Negative) Ur Leukocyte Esterase (Negative) Urine Glucose (Negative) 06/20/17 06/20/17 06/20/17 Range/Units 15:26 15:50 16:10 WBC (3.5-10.8) 10^3/ul RBC (4.0-5.4) 10^6/ul Hgb (12.0-16.0) g/dl Hct (35-47) % MCV (80-97) fL MCH (27-31) pg MCHC (31-36) g/dl RDW (10.5-15) % Plt Count (150-450) 10^3/ul MPV (7.4-10.4) um3 Neut % (Auto) (38-83) % Lymph % (Auto) (25-47) % Kimball % (Auto) (0-7) % Eos % (Auto) (0-6) % Baso % (Auto) (0-2) % Absolute Neuts (auto) (1.5-7.7) 10^3/ul Absolute Lymphs (auto) (1.0-4.8) 10^3/ul Absolute Monos (auto) (0-0.8) 10^3/ul Absolute Eos (auto) (0-0.6) 10^3/ul Absolute Basos (auto) (0-0.2) 10^3/ul Absolute Nucleated RBC 10^3/ul Nucleated RBC % INR (Anticoag Therapy) (0.77-1.02) APTT (26.0-36.3) seconds Sodium (139-145) mmol/L Potassium (3.5-5.0) mmol/L Chloride (101-111) mmol/L Carbon Dioxide (22-32) mmol/L Anion Gap (2-11) mmol/L BUN (6-24) mg/dL Creatinine (0.51-0.95) mg/dL Est GFR ( Amer) (>60) Est GFR (Non-Af Amer) (>60) BUN/Creatinine Ratio (8-20) Glucose (70-100) mg/dL POC Glucose (mg/dL) 89 79 (70-100) mg/dL Lactic Acid (0.5-2.0) mmol/L Calcium (8.6-10.3) mg/dL Total Bilirubin (0.2-1.0) mg/dL AST (13-39) U/L ALT (7-52) U/L Alkaline Phosphatase (34-104) U/L Troponin I (<0.04) ng/mL C-Reactive Protein (< 5.00) mg/L Total Protein (6.4-8.9) g/dL Albumin (3.2-5.2) g/dL Globulin (2-4) g/dL Albumin/Globulin Ratio (1-3) Lipase (11.0-82.0) U/L Procalcitonin (<0.6) ng/mL Beta HCG, Quant mIU/mL Urine Color Straw Urine Appearance Clear Urine pH 5.0 (5-9) Ur Specific [place] 1.008 L (1.010-1.030) Urine Protein Negative (Negative) Urine Ketones Negative (Negative) Urine Blood Negative (Negative) Urine Nitrate Negative (Negative) Urine Bilirubin Negative (Negative) Urine Urobilinogen Negative (Negative) Ur Leukocyte Esterase Negative (Negative) Urine Glucose Negative (Negative) 06/20/17 06/20/17 Range/Units 16:18 16:53 WBC (3.5-10.8) 10^3/ul RBC (4.0-5.4) 10^6/ul Hgb (12.0-16.0) g/dl Hct (35-47) % MCV (80-97) fL MCH (27-31) pg MCHC (31-36) g/dl RDW (10.5-15) % Plt Count (150-450) 10^3/ul MPV (7.4-10.4) um3 Neut % (Auto) (38-83) % Lymph % (Auto) (25-47) % Kimball % (Auto) (0-7) % Eos % (Auto) (0-6) % Baso % (Auto) (0-2) % Absolute Neuts (auto) (1.5-7.7) 10^3/ul Absolute Lymphs (auto) (1.0-4.8) 10^3/ul Absolute Monos (auto) (0-0.8) 10^3/ul Absolute Eos (auto) (0-0.6) 10^3/ul Absolute Basos (auto) (0-0.2) 10^3/ul Absolute Nucleated RBC 10^3/ul Nucleated RBC % INR (Anticoag Therapy) (0.77-1.02) APTT (26.0-36.3) seconds Sodium (139-145) mmol/L Potassium (3.5-5.0) mmol/L Chloride (101-111) mmol/L Carbon Dioxide (22-32) mmol/L Anion Gap (2-11) mmol/L BUN (6-24) mg/dL Creatinine (0.51-0.95) mg/dL Est GFR ( Amer) (>60) Est GFR (Non-Af Amer) (>60) BUN/Creatinine Ratio (8-20) Glucose (70-100) mg/dL POC Glucose (mg/dL) 53 L 172 H (70-100) mg/dL Lactic Acid (0.5-2.0) mmol/L Calcium (8.6-10.3) mg/dL Total Bilirubin (0.2-1.0) mg/dL AST (13-39) U/L ALT (7-52) U/L Alkaline Phosphatase (34-104) U/L Troponin I (<0.04) ng/mL C-Reactive Protein (< 5.00) mg/L Total Protein (6.4-8.9) g/dL Albumin (3.2-5.2) g/dL Globulin (2-4) g/dL Albumin/Globulin Ratio (1-3) Lipase (11.0-82.0) U/L Procalcitonin (<0.6) ng/mL Beta HCG, Quant mIU/mL Urine Color Urine Appearance Urine pH (5-9) Ur Specific [place] (1.010-1.030) Urine Protein (Negative) Urine Ketones (Negative) Urine Blood (Negative) Urine Nitrate (Negative) Urine Bilirubin (Negative) Urine Urobilinogen (Negative) Ur Leukocyte Esterase (Negative) Urine Glucose (Negative) Assess/Plan/Problems-Billing Assessment: 26 yo F h/o DM type I and celiacs vs IBS pw sudden onset diarrhea, N/V found with tachycardia/fever/leukocytosis - Patient Problems (1) Sepsis Current Visit: Yes Status: Acute Comment: Myalgias, emesis point to possible viral illness despite abnl procalciatonin. CXR wnl and urine wnl, C. diff negative, Blood cultures remain pending US RUQ showed contracted GB, some pericholecystic fluid. Stop cipro/flagyl. (2) Diabetes Current Visit: Yes Status: Acute Code(s): E11.9 - TYPE 2 DIABETES MELLITUS WITHOUT COMPLICATIONS SNOMED Code(s): 42750404 Comment: Patient managing with insulin pump (3) Celiac disease Current Visit: Yes Status: Acute Code(s): K90.0 - CELIAC DISEASE SNOMED Code(s): 466734574 Comment: Not clear if this is a well-established dx. Pt on reg diet, making her own choices. (4) Malaise Current Visit: Yes Status: Acute Code(s): R53.81 - OTHER MALAISE SNOMED Code(s): 968148911 Comment: Pt concerned about frequent presence of ketones in urine and/ot blood, was told by her previous manager culture it could be [place]'s disease ( second hand to me). Cortrophyin stim test 06/23 ruled out [place]'s disease. (5) Elevated troponin Current Visit: Yes Status: Acute Code(s): R74.8 - ABNORMAL LEVELS OF OTHER SERUM ENZYMES SNOMED Code(s): 957140807 Comment: Possible viral myocarditis. Echo ordered. Dr. Wren to consult.
--- NOTE | 2017-06-23 15:37 | ECHO ---
Patient: YUSEF ARRINGTON [facility] Rec#: [id number] : 1990 Date: 06/23/2017 Age: 26y Height: 167.64 cm / 66.0 in Weight: 79.83 kg / 175.9 lbs Sex: F BSA: 1.89 Room#: 440 Admit Date#: 06/21/2017 Type: Inpatient Referring: Sammy Arroyo MD Reading: Phong Wren MD Supervisor Post Wave: Alexandra Choi RDCS CC: RICHMONDMARY BRYANT Transthoracic Echocardiogram Indication: Chest pain, elevated troponin level. BP: 116/74 HR: 77 Rhythm: NSR Findings History: DM I, tachycardia. Technical Comments: The study quality is fair. Completed at 1500. Left Ventricle: The left ventricular chamber size is normal. There is no left ventricular hypertrophy. Global left ventricular wall motion and contractility are within normal limits. There is normal left ventricular systolic function. The estimated ejection fraction is 55-60%. Normal left ventricular diastolic filling is observed. Left Atrium: The left atrial chamber size is normal. Right Ventricle: Moderator Band present. The right ventricular cavity size is normal. The right ventricular global systolic function is normal. Right Atrium: The right atrial cavity size is normal. Aortic Valve: The aortic valve is trileaflet. There is no evidence of aortic valve thickening. There is no evidence of aortic regurgitation. There is no evidence of aortic stenosis. Mitral Valve: The anterior leaflet of the mitral valve is thickened. There is mild to moderate mitral regurgitation. There is no evidence of mitral stenosis. Tricuspid Valve: The tricuspid valve leaflets are normal. There is trace to mild tricuspid regurgitation. The right ventricular systolic pressure is estimated at 32 mmHg. No pulmonary hypertension is noted. There is no tricuspid stenosis. Pulmonic Valve: The pulmonic valve appears normal. There is trace to mild pulmonic regurgitation. There is no pulmonic stenosis. Pericardium: There is no significant pericardial effusion. Aorta: There is no dilatation of the ascending aorta. There is no dilatation of the aortic arch. The aortic root is normal in size. Pulmonary Artery: The main pulmonary artery appears normal. Venous: The inferior vena cava appears normal in size. There is a greater than 50% respiratory change in the inferior vena cava dimension. Conclusions Global left ventricular wall motion and contractility are within normal limits. There is normal left ventricular systolic function. The estimated ejection fraction is 55-60%. The right ventricular global systolic function is normal. There is no evidence of aortic stenosis. There is mild to moderate mitral regurgitation. There is no evidence of mitral stenosis. There is trace to mild tricuspid regurgitation. No pulmonary hypertension is noted. There is no significant pericardial effusion. Measurements Name Value Normal Range RVIDd (AP) 2D 2.5 cm (0.9 - 2.6) RVDdMajor (2D) 3.5 cm (2.2 - 4.4) RAd ISD 4CH 4.6 cm (3.4 - 4.9) RA (A4C)W 3.6 cm (2.9 - 4.6) IVSd (2D) 1 cm (0.6 - 1) LVPWd (2D) 0.8 cm (0.6 - 1) LVIDd (2D) 4.7 cm (3.6 - 5.4) LVIDs (2D) 3.1 cm - LV FS (2D) 34 % (25 - 45) Aortic Annulus 2 cm (1.4 - 2.6) Ao root diameter (2D) 3.2 cm (2.1 - 3.5) Ascending Ao 3.2 cm (2.1 - 3.4) Aortic arch 2.3 cm (1.8 - 3.4) LA dimension (AP) 2D 3.6 cm (2.3 - 3.8) LAd ISD 4CH 4.7 cm (2.9 - 5.3) LA ISD 4CH W 4.2 cm (2.5 - 4.5) Name Value Normal Range LA ESV SP 4CH (A/L) 48 ml - LA ESV SP 2CH (A/L) 51 ml - LA ESV BP (A/L) 50 ml - LA ESV BP (A/L) index 26 ml/m2 - LA ESV SP 4CH (MOD) 42 ml - LA ESV SP 2CH (MOD) 48 ml - Name Value Normal Range MV E-wave Vmax 0.95 m/sec - MV deceleration time 131.86 msec - MV A-wave Vmax 0.62 m/sec - MV E:A ratio 1.53 ratio - LV septal e' Vmax 0.16 m/sec - LV lateral e' Vmax 0.18 m/sec - LV E:e' septal ratio 5.94 ratio - LV E:e' lateral ratio 5.28 ratio - Name Value Normal Range AV Vmax 1.1 m/sec - AV VTI 22.65 cm - AV peak gradient 4.88 mmHg - AV mean gradient 2.96 mmHg - LVOT Vmax 0.99 m/sec - LVOT VTI 18.22 cm - LVOT peak gradient 3.95 mmHg - LVOT mean gradient 1.78 mmHg - ROSIE Vmax 1.06 m/sec - Name Value Normal Range MR Vmax 4.95 m/sec - MR VTI 155 cm - MR flow (PISA) 38 ml/sec - MR ERO 0.08 cm2 - MR PISA radius 0.3 cm - MR alias Vmax 50 cm/sec - Name Value Normal Range TR Vmax 2.7 m/sec - TR peak gradient 29 mmHg - RAP 3 mmHg - RVSP 32 mmHg - IVC diameter 1.8 cm - Name Value Normal Range PV Vmax 0.8 m/sec - PV peak gradient 2.61 mmHg - NE end-diastolic Vmax 0.91 m/sec -
[2017-06-23] MEDS: Acetaminophen TAB* 325 MG PO PRN (16:39)
--- NOTE | 2017-06-23 21:32 | CONS ---
CARDIOLOGY CONSULTATION: DATE OF CONSULT: 06/23/17 INDICATION FOR CONSULTATION: Chest pain, abnormal troponin. HISTORY OF PRESENT ILLNESS: The patient is a 26-year-old female, who was admitted to the hospital wi viral syndrome. The patient states she was at home this weekend when she had profound nausea, vom iting and diarrhea. She has had approximately 10 hours of almost continuous symptoms and became very dehydrated and was brought to the emergency room. In the emergency room, the patient was admitted t o the hospital for dehydration. Her initial troponin level was minimally elevated at 0.42. Her peak troponin was 1.1. Her initial CRP was 24, today her CRP is 150. The patient states that over the or so, she has been having intermittent episodes of chest pain. She describes it as a pressur e in the center of her chest. It is a squeezing sensation. It will last for about 5 minutes and then resolve on its own. She denies any shortness of breath. She denies any orthopnea. She denies any palpitations. She has not had any arrhythmias on her shelter monitor. The patient had an echocardiogram today, which showed normal LV size and systolic function, no perica rdial effusion, normal valves. PAST MEDICAL HISTORY: Significant for type 1 diabetes, sinus tachycardia. OUTPATIENT MEDICATIONS: 1. Insulin pump. 2. Zoloft 100 mg a day. 3. Oral contraceptives. 4. Multiple supplements. ALLERGIES: To GLUTEN and BACTRIM. FAMILY HISTORY: Grandmother with CAD. Father with multiple sclerosis. 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 She denies tobacco or alcohol use. PHYSICAL EXAM: Height is 5 feet 6 inches, weight is 176 pounds. Temperature 98.2, heart rate is 77, blood pressure 116/74, respiratory rate is 16, oxygen saturation 100% on room air. The patient is l rufino in bed. She appears rather pale and fatigued. Sclerae anicteric. Oropharynx is pink without e rythema. Carotids are 2+ without bruits. JVD is normal. Thyroid is normal. Cardiac Exam: S1, S2 without any murmurs, rubs, or gallops. Lungs are clear to auscultation bilaterally. There is no dul lness to percussion. Abdomen is soft, nontender, nondistended with normoactive bowel sounds. Extrem ities show no edema. She has 2+ pulses throughout. The patient is awake, alert, and oriented. She moves all 4 extremities equally. DIAGNOSTIC STUDIES/LAB DATA: White count 17.7, hemoglobin 13, hematocrit 39, platelet count 129. Ch emistries within normal limits. BUN 5, creatinine 0.5. AST and ALT are normal. C-reactive protein originally was 13 and is now 150. Troponin level with a peak of 1.1. EKG demonstrates normal sinus rhythm with normal axis and intervals. Echocardiogram shows normal LV size and systolic function, no significant valvular abnormalities, no pericardial effusion. IMPRESSION AND PLAN: This is a 26-year-old female with a history of diabetes, who was admitted to [facility] with a viral syndrome. The patient clearly has myopericarditis based on her symptomatolog y. Again, her echocardiogram is unremarkable. For now, my recommendation is to continue to treat her symptomatically. The patient does not need an y further cardiac workup. The patient's LV function is normal today. The likelihood of worsening of her LV function now that she started to feel better is very low. At this point, I do not think any Cardiology workup or followup is necessary. This case was discussed with Dr. Arroyo. [id number] #: [id number]
[2017-06-24] MEDS: Acetaminophen TAB* 325 MG PO PRN (02:20)
[2017-06-24] MEDS: Multivitamins/Minerals TAB PO SCH (09:29)
[2017-06-24] MEDS: Sertraline* 100 MG TAB PO SCH (09:29)
[2017-06-24] MEDS: Potassium Chlor TAB* 10 MEQ TAB.ER PO SCH ×4 (09:29→20:03)
[2017-06-24] MEDS: Cyanocobalamin TAB* 500 MCG PO SCH (09:29)
[2017-06-24] MEDS: Cholecalciferol TAB* 1000 UNITS PO SCH (09:29)
[2017-06-24] MEDS: NORGEST PO SCH (09:31)
[2017-06-24] MEDS: [UNRECOGNIZED DRUG - OTHER] PO SCH (09:31)
[2017-06-24] MEDS: E ESTRADIOL E ESTRAD PO SCH (09:31)
[2017-06-24] MEDS: INSULIN GLULISINE SUBCUT SCH (09:31)
[2017-06-24 10:19] LABS: EGFR Non-African American 122.8 (>60)
[2017-06-24] MEDS ORDERED: Magnesium Sulfate 2 GM IV* 2 GM/50 ML BAG IVPB ONE (10:28)
--- NOTE | 2017-06-24 11:59 | PN ---
Subjective Date of Service: 06/24/17 Interval History: Some chest pressure earlier this AM, now gone. No new c/o. Anxious to go home. Objective Active Medications: Acetaminophen (Tylenol Tab*) 650 mg PO Q6H PRN PRN Reason: PAIN Last Admin: 06/24/17 02:20 Dose: 650 mg Cholecalciferol (Vitamin D Tab*) 4,000 units PO DAILY [facility] Last Admin: 06/24/17 09:29 Dose: 4,000 units Cyanocobalamin (Vitamin B12 Tab*) 500 mcg PO DAILY [facility] Last Admin: 06/24/17 09:29 Dose: 500 mcg Metoprolol Succinate (Toprol Xl Tab*) 25 mg PO DAILY [facility] Multivitamins/Minerals (Theragran/Minerals Tab*) 1 tab PO DAILY [facility] Last Admin: 06/24/17 09:29 Dose: 1 tab Non-Formulary Medication (Insulin Glulisine [Apidra]) 0 units SUBCUT DAILY [facility] Last Admin: 06/24/17 09:31 Dose: Not Given Non-Formulary Medication (L-Norgest/E.Estradiol-E.Estrad [Daysee 0.15-0.03-0.01 Mg Tab]) 1 tab PO DAILY [facility] Last Admin: 06/24/17 09:31 Dose: Not Given Ondansetron HCl (Zofran Inj*) 4 mg IV Q4H PRN PRN Reason: NAUSEA Last Admin: 06/21/17 05:20 Dose: 4 mg Ondansetron HCl (Zofran Odt Tab*) 4 mg SL Q6H PRN PRN Reason: NAUSEA/VOMITING Last Admin: 06/21/17 04:56 Dose: 4 mg Potassium Chloride (Klor Con Er Tab*) 20 meq PO QID [facility] Last Admin: 06/24/17 09:29 Dose: 20 meq Prochlorperazine Edisylate (Compazine Inj*) 10 mg IV Q6H PRN PRN Reason: NAUSEA/VOMITING Last Admin: 06/21/17 07:06 Dose: 10 mg Sertraline HCl (Zoloft*) 100 mg PO DAILY [facility] Last Admin: 06/24/17 09:29 Dose: 100 mg Vital Signs - 8 hr 06/24/17 04:01 Temperature 98.2 F Pulse Rate 70 Respiratory 16 Rate Blood Pressure 111/66 (mmHg) O2 Sat by Pulse 98 Oximetry Oxygen Devices in Use Now: None Appearance: Alert, partly up in bed. In good spirits. Looks comfortable. Eyes: No Scleral Icterus Extremities: No Edema, No Clubbing, Cyanosis, - Skin: No Rash or Ulcers, No Nodules or Sclerosis, - Neurological: Alert and Oriented x 3, NL Sensation Result Diagrams: 06/22/17 06:41 06/24/17 09:51 Additional Lab and Data: Lab Results 06/20/17 06/20/17 06/20/17 Range/Units 13:52 14:19 14:19 WBC 12.8 H (3.5-10.8) 10^3/ul RBC 5.01 (4.0-5.4) 10^6/ul Hgb 14.9 (12.0-16.0) g/dl Hct 44 (35-47) % MCV 89 (80-97) fL MCH 30 (27-31) pg MCHC 34 (31-36) g/dl RDW 13 (10.5-15) % Plt Count 260 (150-450) 10^3/ul MPV 8.6 (7.4-10.4) um3 Neut % (Auto) 95.3 H (38-83) % Lymph % (Auto) 4.1 L (25-47) % Lawrence % (Auto) 0.4 (0-7) % Eos % (Auto) 0.1 (0-6) % Baso % (Auto) 0.1 (0-2) % Absolute Neuts (auto) 12.2 H (1.5-7.7) 10^3/ul Absolute Lymphs (auto) 0.5 L (1.0-4.8) 10^3/ul Absolute Monos (auto) 0 (0-0.8) 10^3/ul Absolute Eos (auto) 0 (0-0.6) 10^3/ul Absolute Basos (auto) 0 (0-0.2) 10^3/ul Absolute Nucleated RBC 0 10^3/ul Nucleated RBC % 0 INR (Anticoag Therapy) 0.86 (0.77-1.02) APTT 21.6 L (26.0-36.3) seconds Sodium (139-145) mmol/L Potassium (3.5-5.0) mmol/L Chloride (101-111) mmol/L Carbon Dioxide (22-32) mmol/L Anion Gap (2-11) mmol/L BUN (6-24) mg/dL Creatinine (0.51-0.95) mg/dL Est GFR ( Amer) (>60) Est GFR (Non-Af Amer) (>60) BUN/Creatinine Ratio (8-20) Glucose (70-100) mg/dL POC Glucose (mg/dL) 169 H (70-100) mg/dL Lactic Acid (0.5-2.0) mmol/L Calcium (8.6-10.3) mg/dL Total Bilirubin (0.2-1.0) mg/dL AST (13-39) U/L ALT (7-52) U/L Alkaline Phosphatase (34-104) U/L Troponin I (<0.04) ng/mL C-Reactive Protein (< 5.00) mg/L Total Protein (6.4-8.9) g/dL Albumin (3.2-5.2) g/dL Globulin (2-4) g/dL Albumin/Globulin Ratio (1-3) Lipase (11.0-82.0) U/L Procalcitonin (<0.6) ng/mL Beta HCG, Quant mIU/mL Urine Color Urine Appearance Urine pH (5-9) Ur Specific [place] (1.010-1.030) Urine Protein (Negative) Urine Ketones (Negative) Urine Blood (Negative) Urine Nitrate (Negative) Urine Bilirubin (Negative) Urine Urobilinogen (Negative) Ur Leukocyte Esterase (Negative) Urine Glucose (Negative) 06/20/17 06/20/17 06/20/17 Range/Units 14:19 14:19 14:19 WBC (3.5-10.8) 10^3/ul RBC (4.0-5.4) 10^6/ul Hgb (12.0-16.0) g/dl Hct (35-47) % MCV (80-97) fL MCH (27-31) pg MCHC (31-36) g/dl RDW (10.5-15) % Plt Count (150-450) 10^3/ul MPV (7.4-10.4) um3 Neut % (Auto) (38-83) % Lymph % (Auto) (25-47) % Lawrence % (Auto) (0-7) % Eos % (Auto) (0-6) % Baso % (Auto) (0-2) % Absolute Neuts (auto) (1.5-7.7) 10^3/ul Absolute Lymphs (auto) (1.0-4.8) 10^3/ul Absolute Monos (auto) (0-0.8) 10^3/ul Absolute Eos (auto) (0-0.6) 10^3/ul Absolute Basos (auto) (0-0.2) 10^3/ul Absolute Nucleated RBC 10^3/ul Nucleated RBC % INR (Anticoag Therapy) (0.77-1.02) APTT (26.0-36.3) seconds Sodium 141 (139-145) mmol/L Potassium 3.1 L (3.5-5.0) mmol/L Chloride 106 (101-111) mmol/L Carbon Dioxide 22 (22-32) mmol/L Anion Gap 13 H (2-11) mmol/L BUN 12 (6-24) mg/dL Creatinine 0.89 (0.51-0.95) mg/dL Est GFR ( Amer) 100.2 (>60) Est GFR (Non-Af Amer) 77.9 (>60) BUN/Creatinine Ratio 13.5 (8-20) Glucose 135 H (70-100) mg/dL POC Glucose (mg/dL) (70-100) mg/dL Lactic Acid 4.6 H* (0.5-2.0) mmol/L Calcium 9.0 (8.6-10.3) mg/dL Total Bilirubin 0.70 (0.2-1.0) mg/dL AST 17 (13-39) U/L ALT 13 (7-52) U/L Alkaline Phosphatase 70 (34-104) U/L Troponin I 0.00 (<0.04) ng/mL C-Reactive Protein 13.71 H (< 5.00) mg/L Total Protein 7.0 (6.4-8.9) g/dL Albumin 3.8 (3.2-5.2) g/dL Globulin 3.2 (2-4) g/dL Albumin/Globulin Ratio 1.2 (1-3) Lipase 13 (11.0-82.0) U/L Procalcitonin 1.5 H (<0.6) ng/mL Beta HCG, Quant < 0.60 mIU/mL Urine Color Urine Appearance Urine pH (5-9) Ur Specific [place] (1.010-1.030) Urine Protein (Negative) Urine Ketones (Negative) Urine Blood (Negative) Urine Nitrate (Negative) Urine Bilirubin (Negative) Urine Urobilinogen (Negative) Ur Leukocyte Esterase (Negative) Urine Glucose (Negative) 06/20/17 06/20/17 06/20/17 Range/Units 15:26 15:50 16:10 WBC (3.5-10.8) 10^3/ul RBC (4.0-5.4) 10^6/ul Hgb (12.0-16.0) g/dl Hct (35-47) % MCV (80-97) fL MCH (27-31) pg MCHC (31-36) g/dl RDW (10.5-15) % Plt Count (150-450) 10^3/ul MPV (7.4-10.4) um3 Neut % (Auto) (38-83) % Lymph % (Auto) (25-47) % Lawrence % (Auto) (0-7) % Eos % (Auto) (0-6) % Baso % (Auto) (0-2) % Absolute Neuts (auto) (1.5-7.7) 10^3/ul Absolute Lymphs (auto) (1.0-4.8) 10^3/ul Absolute Monos (auto) (0-0.8) 10^3/ul Absolute Eos (auto) (0-0.6) 10^3/ul Absolute Basos (auto) (0-0.2) 10^3/ul Absolute Nucleated RBC 10^3/ul Nucleated RBC % INR (Anticoag Therapy) (0.77-1.02) APTT (26.0-36.3) seconds Sodium (139-145) mmol/L Potassium (3.5-5.0) mmol/L Chloride (101-111) mmol/L Carbon Dioxide (22-32) mmol/L Anion Gap (2-11) mmol/L BUN (6-24) mg/dL Creatinine (0.51-0.95) mg/dL Est GFR ( Amer) (>60) Est GFR (Non-Af Amer) (>60) BUN/Creatinine Ratio (8-20) Glucose (70-100) mg/dL POC Glucose (mg/dL) 89 79 (70-100) mg/dL Lactic Acid (0.5-2.0) mmol/L Calcium (8.6-10.3) mg/dL Total Bilirubin (0.2-1.0) mg/dL AST (13-39) U/L ALT (7-52) U/L Alkaline Phosphatase (34-104) U/L Troponin I (<0.04) ng/mL C-Reactive Protein (< 5.00) mg/L Total Protein (6.4-8.9) g/dL Albumin (3.2-5.2) g/dL Globulin (2-4) g/dL Albumin/Globulin Ratio (1-3) Lipase (11.0-82.0) U/L Procalcitonin (<0.6) ng/mL Beta HCG, Quant mIU/mL Urine Color Straw Urine Appearance Clear Urine pH 5.0 (5-9) Ur Specific [place] 1.008 L (1.010-1.030) Urine Protein Negative (Negative) Urine Ketones Negative (Negative) Urine Blood Negative (Negative) Urine Nitrate Negative (Negative) Urine Bilirubin Negative (Negative) Urine Urobilinogen Negative (Negative) Ur Leukocyte Esterase Negative (Negative) Urine Glucose Negative (Negative) 18 06/20/17 Range/Units 16:18 16:53 WBC (3.5-10.8) 10^3/ul RBC (4.0-5.4) 10^6/ul Hgb (12.0-16.0) g/dl Hct (35-47) % MCV (80-97) fL MCH (27-31) pg MCHC (31-36) g/dl RDW (10.5-15) % Plt Count (150-450) 10^3/ul MPV (7.4-10.4) um3 Neut % (Auto) (38-83) % Lymph % (Auto) (25-47) % Lawrence % (Auto) (0-7) % Eos % (Auto) (0-6) % Baso % (Auto) (0-2) % Absolute Neuts (auto) (1.5-7.7) 10^3/ul Absolute Lymphs (auto) (1.0-4.8) 10^3/ul Absolute Monos (auto) (0-0.8) 10^3/ul Absolute Eos (auto) (0-0.6) 10^3/ul Absolute Basos (auto) (0-0.2) 10^3/ul Absolute Nucleated RBC 10^3/ul Nucleated RBC % INR (Anticoag Therapy) (0.77-1.02) APTT (26.0-36.3) seconds Sodium (139-145) mmol/L Potassium (3.5-5.0) mmol/L Chloride (101-111) mmol/L Carbon Dioxide (22-32) mmol/L Anion Gap (2-11) mmol/L BUN (6-24) mg/dL Creatinine (0.51-0.95) mg/dL Est GFR ( Amer) (>60) Est GFR (Non-Af Amer) (>60) BUN/Creatinine Ratio (8-20) Glucose (70-100) mg/dL POC Glucose (mg/dL) 53 L 172 H (70-100) mg/dL Lactic Acid (0.5-2.0) mmol/L Calcium (8.6-10.3) mg/dL Total Bilirubin (0.2-1.0) mg/dL AST (13-39) U/L ALT (7-52) U/L Alkaline Phosphatase (34-104) U/L Troponin I (<0.04) ng/mL C-Reactive Protein (< 5.00) mg/L Total Protein (6.4-8.9) g/dL Albumin (3.2-5.2) g/dL Globulin (2-4) g/dL Albumin/Globulin Ratio (1-3) Lipase (11.0-82.0) U/L Procalcitonin (<0.6) ng/mL Beta HCG, Quant mIU/mL Urine Color Urine Appearance Urine pH (5-9) Ur Specific [place] (1.010-1.030) Urine Protein (Negative) Urine Ketones (Negative) Urine Blood (Negative) Urine Nitrate (Negative) Urine Bilirubin (Negative) Urine Urobilinogen (Negative) Ur Leukocyte Esterase (Negative) Urine Glucose (Negative) Assess/Plan/Problems-Billing Assessment: 26 yo F h/o DM type I and celiacs vs IBS pw sudden onset diarrhea, N/V found with tachycardia/fever/leukocytosis - Patient Problems (1) Sepsis Current Visit: Yes Status: Acute Comment: Myalgias, emesis point to possible viral illness despite abnl procalciatonin. CXR wnl and urine wnl, C. diff negative, Blood cultures remain pending US RUQ showed contracted GB, some pericholecystic fluid. Stop cipro/flagyl. (2) Diabetes Current Visit: Yes Status: Acute Code(s): E11.9 - TYPE 2 DIABETES MELLITUS WITHOUT COMPLICATIONS SNOMED Code(s): 39866816 Comment: Patient managing with insulin pump (3) Celiac disease Current Visit: Yes Status: Acute Code(s): K90.0 - CELIAC DISEASE SNOMED Code(s): 632623221 Comment: Not clear if this is a well-established dx. Pt on reg diet, making her own choices. (4) Malaise Current Visit: Yes Status: Acute Code(s): R53.81 - OTHER MALAISE SNOMED Code(s): 128450920 Comment: Pt concerned about frequent presence of ketones in urine and/ot blood, was told by her previous electric power line examiner it could be [place]'s disease ( second hand to me). Cortrophyin stim test 06/23 ruled out Brooklyn's disease. (5) Myocarditis Current Visit: Yes Status: Acute Code(s): I51.4 - MYOCARDITIS, UNSPECIFIED SNOMED Code(s): 26635680 Comment: Possible viral myocarditis. Echo showed nl LV function, mild to mod MR. Discussed with Dr. Wren 06/23. 7 beats V-tach in evening 06/23. IV mag ordered, po KCL. Dr. Barker to evaluate 06/24, ? start BB. Dr. Merlos to consult. 2 more sets of blold C&S ordered.
--- NOTE | 2017-06-24 12:00 | PN ---
Subjective Date of Service: 06/24/17 - CC: Chest pain Interval History: The patient had significant chest pain yesterday, very bad at 8 PM. This was associated with NSVT MM 7 beats, CL 480 ms (pt unaware of ectopy). The patient states that in this hospitalization the chest pain was associated with emotional stress. 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 The patient is currently CP free. Medications Active Medications: Acetaminophen (Tylenol Tab*) 650 mg PO Q6H PRN PRN Reason: PAIN Last Admin: 06/24/17 02:20 Dose: 650 mg Cholecalciferol (Vitamin D Tab*) 4,000 units PO DAILY [facility] Last Admin: 06/24/17 09:29 Dose: 4,000 units Cyanocobalamin (Vitamin B12 Tab*) 500 mcg PO DAILY [facility] Last Admin: 06/24/17 09:29 Dose: 500 mcg Metoprolol Succinate (Toprol Xl Tab*) 25 mg PO DAILY [facility] Multivitamins/Minerals (Theragran/Minerals Tab*) 1 tab PO DAILY [facility] Last Admin: 06/24/17 09:29 Dose: 1 tab Non-Formulary Medication (Insulin Glulisine [Apidra]) 0 units SUBCUT DAILY [facility] Last Admin: 06/24/17 09:31 Dose: Not Given Non-Formulary Medication (L-Norgest/E.Estradiol-E.Estrad [Daysee 0.15-0.03-0.01 Mg Tab]) 1 tab PO DAILY [facility] Last Admin: 06/24/17 09:31 Dose: Not Given Ondansetron HCl (Zofran Inj*) 4 mg IV Q4H PRN PRN Reason: NAUSEA Last Admin: 06/21/17 05:20 Dose: 4 mg Ondansetron HCl (Zofran Odt Tab*) 4 mg SL Q6H PRN PRN Reason: NAUSEA/VOMITING Last Admin: 06/21/17 04:56 Dose: 4 mg Potassium Chloride (Klor Con Er Tab*) 20 meq PO QID [facility] Last Admin: 06/24/17 09:29 Dose: 20 meq Prochlorperazine Edisylate (Compazine Inj*) 10 mg IV Q6H PRN PRN Reason: NAUSEA/VOMITING Last Admin: 06/21/17 07:06 Dose: 10 mg Sertraline HCl (Zoloft*) 100 mg PO DAILY [facility] Last Admin: 06/24/17 09:29 Dose: 100 mg Objective Vital Signs: Temp Pulse Resp BP Pulse Ox 98.2 F 70 16 111/66 98 06/24/17 04:01 06/24/17 04:01 06/24/17 04:01 06/24/17 04:01 06/24/17 04:01 Oxygen Devices in Use Now: None Appearance: Young adult woman, mildly flushed, lying at 20 degrees, NAD. Mother in the room. Eyes: No Scleral Icterus, PERRLA Ears/Nose/Mouth/Throat: Clear Oropharnyx, Mucous Membranes Moist Neck: NL Appearance and Movements; NL JVP, No Thyroid Enlargement, Masses Respiratory: Symmetrical Chest Expansion and Respiratory Effort, Clear to Auscultation Cardiovascular: NL Sounds; No Murmurs; No JVD, RRR Abdominal: NL Sounds; No Tenderness; No Distention Extremities: No Clubbing, Cyanosis Skin: No Rash or Ulcers Neurological: Alert and Oriented x 3, NL Muscle Strength and Tone Lines/Tubes/Other Access: Clean, Dry and Intact Peripheral IV Laboratory Results: 06/22/17 06:41 06/24/17 09:51 INR (Anticoag Therapy) 0.86 (0.77-1.02) 06/20/17 14:19 APTT 21.6 seconds (26.0-36.3) L 06/20/17 14:19 Total Bilirubin 0.70 mg/dL (0.2-1.0) 06/20/17 14:19 AST 17 U/L (13-39) 06/20/17 14:19 ALT 13 U/L (7-52) 06/20/17 14:19 Alkaline Phosphatase 70 U/L (34-104) 06/20/17 14:19 Total Protein 7.0 g/dL (6.4-8.9) 06/20/17 14:19 Albumin 3.8 g/dL (3.2-5.2) 06/20/17 14:19 Globulin 3.2 g/dL (2-4) 06/20/17 14:19 Albumin/Globulin Ratio 1.2 (1-3) 06/20/17 14:19 06/23/17 06/23/17 06/23/17 06:35 08:20 08:50 Troponin I 0.48 H* 0.92 H* 1.25 H* 06/23/17 06/24/17 15:56 09:51 Troponin I 4.14 H* 13.78 H* 06/20/17 06/21/17 06/21/17 14:19 06:29 16:52 WBC RBC Hgb Hct MCV MCH MCHC RDW Plt Count MPV Neut % (Auto) Lymph % (Auto) [place] % (Auto) Eos % (Auto) Baso % (Auto) Absolute Neuts (auto) Absolute Lymphs (auto) Absolute Monos (auto) Absolute Eos (auto) Absolute Basos (auto) Absolute Nucleated RBC Nucleated RBC % Sodium Potassium Chloride Carbon Dioxide Anion Gap BUN Creatinine Est GFR ( Amer) Est GFR (Non-Af Amer) BUN/Creatinine Ratio Glucose POC Glucose (mg/dL) 132 H Hemoglobin A1c 8.1 H Calcium Magnesium Troponin I C-Reactive Protein Cortisol HIV 1&2 Antibody Nonreactive 06/21/17 06/22/17 06/22/17 20:54 05:42 06:41 WBC 17.7 H RBC 4.43 Hgb 13.1 Hct 39 MCV 88 MCH 30 MCHC 34 RDW 13 Plt Count 129 L MPV 8.7 Neut % (Auto) 85.4 H Lymph % (Auto) 6.0 L [place] % (Auto) 2.4 Eos % (Auto) 5.5 Baso % (Auto) 0.7 Absolute Neuts (auto) 15.1 H Absolute Lymphs (auto) 1.1 Absolute Monos (auto) 0.4 Absolute Eos (auto) 1.0 H Absolute Basos (auto) 0.1 Absolute Nucleated RBC 0 Nucleated RBC % 0 Sodium 136 L Potassium 3.3 L Chloride 113 H Carbon Dioxide 17 L Anion Gap 6 BUN 5 L Creatinine 0.56 Est GFR ( Amer) 171.0 Est GFR (Non-Af Amer) 133.0 BUN/Creatinine Ratio 8.9 Glucose 87 POC Glucose (mg/dL) 143 H Hemoglobin A1c Calcium 6.6 L Magnesium Troponin I C-Reactive Protein Cortisol HIV 1&2 Antibody 06/22/17 06/22/17 06/22/17 07:42 11:45 16:32 WBC RBC Hgb Hct MCV MCH MCHC RDW Plt Count MPV Neut % (Auto) Lymph % (Auto) [place] % (Auto) Eos % (Auto) Baso % (Auto) Absolute Neuts (auto) Absolute Lymphs (auto) Absolute Monos (auto) Absolute Eos (auto) Absolute Basos (auto) Absolute Nucleated RBC Nucleated RBC % Sodium Potassium Chloride Carbon Dioxide Anion Gap BUN Creatinine Est GFR ( Amer) Est GFR (Non-Af Amer) BUN/Creatinine Ratio Glucose POC Glucose (mg/dL) 199 H 183 H 148 H Hemoglobin A1c Calcium Magnesium Troponin I C-Reactive Protein Cortisol HIV 1&2 Antibody 06/22/17 06/23/17 06/23/17 20:21 06:35 07:45 WBC RBC Hgb Hct MCV MCH MCHC RDW Plt Count MPV Neut % (Auto) Lymph % (Auto) [place] % (Auto) Eos % (Auto) Baso % (Auto) Absolute Neuts (auto) Absolute Lymphs (auto) Absolute Monos (auto) Absolute Eos (auto) Absolute Basos (auto) Absolute Nucleated RBC Nucleated RBC % Sodium Potassium Chloride Carbon Dioxide Anion Gap BUN Creatinine Est GFR ( Amer) Est GFR (Non-Af Amer) BUN/Creatinine Ratio Glucose POC Glucose (mg/dL) 192 H 87 Hemoglobin A1c Calcium Magnesium Troponin I 0.48 H* C-Reactive Protein Cortisol 20.14 HIV 1&2 Antibody 06/23/17 06/23/17 06/23/17 08:20 08:50 12:20 WBC RBC Hgb Hct MCV MCH MCHC RDW Plt Count MPV Neut % (Auto) Lymph % (Auto) [place] % (Auto) Eos % (Auto) Baso % (Auto) Absolute Neuts (auto) Absolute Lymphs (auto) Absolute Monos (auto) Absolute Eos (auto) Absolute Basos (auto) Absolute Nucleated RBC Nucleated RBC % Sodium Potassium Chloride Carbon Dioxide Anion Gap BUN Creatinine Est GFR ( Amer) Est GFR (Non-Af Amer) BUN/Creatinine Ratio Glucose POC Glucose (mg/dL) 199 H Hemoglobin A1c Calcium Magnesium Troponin I 0.92 H* 1.25 H* C-Reactive Protein 154.35 H Cortisol 31.72 32.71 HIV 1&2 Antibody 06/23/17 06/23/17 06/24/17 15:56 17:10 09:51 WBC RBC Hgb Hct MCV MCH MCHC RDW Plt Count MPV Neut % (Auto) Lymph % (Auto) [place] % (Auto) Eos % (Auto) Baso % (Auto) Absolute Neuts (auto) Absolute Lymphs (auto) Absolute Monos (auto) Absolute Eos (auto) Absolute Basos (auto) Absolute Nucleated RBC Nucleated RBC % Sodium 136 L Potassium 3.7 Chloride 103 Carbon Dioxide 25 Anion Gap 8 BUN 4 L Creatinine 0.60 Est GFR ( Amer) 158.0 Est GFR (Non-Af Amer) 122.8 BUN/Creatinine Ratio 6.7 L Glucose 192 H POC Glucose (mg/dL) 176 H Hemoglobin A1c Calcium 8.9 Magnesium 1.6 L Troponin I 4.14 H* 13.78 H* C-Reactive Protein 56.92 H Cortisol HIV 1&2 Antibody Diagnostic Imaging: Echo 06/23/17: Normal wall motion and EF 55%, mild to mod MR, posterior lateral jet. No PC effusion. EKG Data: Hx ST, NSR, monitor last evening 7 beats MM NSVT as above. ECG today shows SR 99 bpm, QRS axis +30, normal AV/IV CT, subtle STdepression inferior leads III, aVF. Assessment/Plan 26 yo Type 1 DM presented 4 days ago (Thursday) with pus expressed from insulin pump sight and 1 hour later developed N/V diarrhea and fevers. In ED the patient had SS chest pain/tightness, low BP. No clear infectious source, possible viral gastroenteritis with elevated WBC , CRP (improving). Cardiac issues include CP, elevated troponins, now 14 today, mild to moderate mitral insufficiency and chest pain with physical stress going back about 10 years. -Possible myocarditis with VT: -Metoprolol -ASA 81 mg -Would add NSAIDs such as Aleve q 12 hours -once diarrhea resolved consider colchicine -No recent dental work or procedures that would predispose the patient to endocarditis, but with MR will keep in the differential -Possible true ischemia related to coronary disease I am most concerned about the possibility of an anomalous vessel. Cardiac CTA vs. cath are options to diagnose. -After discussion with personal lines account manager will plan on CTA outpatient. -Focused echo to look for wall motion, new, and look for take of of the coronary arteries if able. CAD from other etiologies such as plaque or arteritis possible as well. FHx CAD with father and paternal uncle. -ASA and metoprolol as above. -check lipids -serial troponins and ECG's until troponin peak. VT: ischemic vs myocarditis vs. catacholamine induced. -Agree with KCl and Mag replacement. -beta block, avoid excessive physical or emotional stress. -No family hx sudden , QTc OK at 426 ms today. -ideally outpatient event monitor if able.
[2017-06-24] MEDS: Aspirin 81 mg CHEW TAB* 81 MG TAB.CHEW PO SCH (12:47)
[2017-06-24] MEDS: Metoprolol Succinate XL TAB* 25 MG PO SCH (12:47)
--- NOTE | 2017-06-24 17:24 | ECHO ---
Patient: YUSEF ARRINGTON [facility] Rec#: [id number] : 1990 Date: 06/24/2017 Age: 26y Height: 168 cm / 66.1 in Weight: 79.9 kg / 176.1 lbs Sex: F BSA: 1.9 Room#: 440 Admit Date#: 06/21/2017 Type: Inpatient Referring: Seda Barker MD Reading: Seda Barker MD Gantry Crane Operator: Court Gilbert RN RDCS CC: MARY FRAGOSO Transthoracic Echocardiogram Indication: Chest pain, elevated troponin levels BP: 122/80 HR: 107 Rhythm: Tachycardia Findings History: Type 1 DM, intermittent chest pain, tachycardia, viral syndrome. This is a LIMITED echo to assess the LV for new wall motion abnormalities, examine the mitral valve leaflets for possible endocarditis, and attempt to visualize the coronary arteries. Technical Comments: The study quality is fair. Left Ventricle: There is a focal wall motion abnormality present.[place], particularly anterior apex is relatively hypokinetic c/w the base. There is mild to moderately decreased left ventricular systolic function. The estimated ejection fraction is 40-45%. Aortic Valve: The aortic valve is trileaflet.Origin of left main coronary artery well visualized off the LCC. Did not clearly see RCA off RCC. Mitral Valve: The mitral valve leaflets are mildly thickened. There is mild mitral regurgitation. No vegetation is observed on the mitral valve. Conclusions There is mild to moderately decreased left ventricular systolic function. .[place], particularly anterior apex is relatively hypokinetic in contrast to the base. No ballooning. The estimated ejection fraction is 40-45%. The origin of left main coronary artery well visualized off the LCC. No clear visualization of the RCA off RCC. There is mild mitral regurgitation, no vegetation is observed on the mitral valve. Compared with complete echo of 06/23/17, wall motion abnormalies are new, EF has dropped. The degree of MR has improved. Comment: HR 06/23/17 normal, in 80's and tachycardic in low 100's.
--- NOTE | 2017-06-24 21:08 | CONS ---
CONSULTATION REPORT: DATE OF CONSULT: 06/24/17 REQUESTING PHYSICIAN: Dr. Arroyo. CONSULTING SERVICE: Infectious Disease. REASON FOR CONSULT: Fever and chest pain. IMPRESSION: 1. Recent sudden onset of fever, vomiting, and diarrhea, sounds most consistent with a viral gastroenteritis and then developed some substernal chest pain at rest as well as a few beats of ventricular tachycardia on telemetry. Her EKG did not show ischemic changes. Her troponin was initially 0 and is up to 13.7 today, the initially was on a 12. She had an episode of chest pain this morning, was not positional or related to breathing. She had an echocardiogram that did not show a pericardial effusion secondary other most likely a myocarditis, probably a viral, question was raised of anomalous coronary, which is going to be evaluated by Cardiology. I guess the differential would also include an autoimmune myocarditis, so it seems to be in proximity to a recent viral illness. 2. Type 1 diabetes, on insulin pump. 3. BACTRIM allergy, which caused rash. RECOMMENDATION: Continue off of antibiotics. We will add serology for treatable viral infections, HIV, hep B, hep C. Lyme is not associated with a myocarditis. We will hold off on testing for Lyme. HISTORY OF PRESENT ILLNESS: This is a 26-year-old woman with type 1 diabetes, admitted with chest pain. She was healthy until earlier in a week. She developed sudden onset of some mild abdominal pain, vomiting, and liquid diarrhea. When that happened, she came to the emergency room on the . She had a CT of abdomen and pelvis, showed some pericholecystic fluid, no masses. A gallbladder ultrasound on the confirmed the pericholecystic fluid, but found no stones. There was no gallbladder distention. She had had 6 L of IV fluid by then. She had transthoracic echocardiogram done yesterday that showed ejection fraction of 55% to 60%, normal LV wall motion, normal right ventricular systolic function, ikdo-wa-ehwyqldh mitral regurgitation, trace-to- mild tricuspid regurgitation, no pericardial effusion. She had fever initially to 39.1 on the day she arrived. Her last fever was on the and none since then. Troponin initially was 0 on the , 0.5 on the 15, up to 13.8 this morning. She is having no chest pain now, she had some earlier in the day, which corresponded to a few beats of V-tach on the telemetry. She has not had a hospitalization due to infection recently. She has had some blood sugar related issues. PAST MEDICAL HISTORY: 1. Type 1 diabetes with insulin pump. 2. Depression. 3. Diagnosis of exercise-induced asthma, which has been called on the question. MEDICATIONS: 1. Tylenol. 2. Aspirin. 3. Cholecalciferol. 4. Cyanocobalamin. 5. Oral contraceptive pill. 6. Multivitamin. 7. Zofran as needed. 8. Sertraline. ALLERGIES: BACTRIM caused diarrhea and rash. FAMILY HISTORY: No recurrent infections or tuberculosis. SOCIAL HISTORY: She lives in [place] by herself. 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 She has had no travel or sick contacts. She has a pet cat. REVIEW OF SYSTEMS: All negative on 14-point review of systems except as noted above. PHYSICAL EXAM: Vital Signs: Temperature 37, heart rate 100, respiratory rate 20, blood pressure 120/80, oxygen saturation 100% on room air. In general, she is awake, not in distress. Neurologic: She is oriented x3, follows all commands. HEENT: There is no conjunctival hemorrhage. Oropharynx without lesions. Neck: Supple without mass. Lymph Nodes: There is no cervical or epitrochlear lymphadenopathy. Heart has a regular rate and rhythm without murmurs, rubs, or gallops. Lungs are clear to auscultation bilaterally. Abdomen: Soft, nontender, nondistended. There is bowel sounds present. Skin: There is no rash or splinter hemorrhages. Musculoskeletal: There is no spine tenderness to palpation or joint synovitis. DIAGNOSTIC STUDIES/LAB DATA: Creatinine 0.6. CRP 57, down from 154 yesterday. White blood cell count 17, down from 19 yesterday. Platelets 129, hemoglobin 13. HIV antibody was negative. Please see impressions and recommendations as outlined above. Thank you for asking me to see Ms. Mock in consultation. [id number]/[facility] #: [id number] GAUTAM
[2017-06-25] MEDS: E ESTRADIOL E ESTRAD PO SCH (09:23)
[2017-06-25] MEDS: [UNRECOGNIZED DRUG - OTHER] PO SCH (09:23)
[2017-06-25] MEDS: NORGEST PO SCH (09:23)
[2017-06-25] MEDS: INSULIN GLULISINE SUBCUT SCH (09:23)
[2017-06-25] MEDS: Cholecalciferol TAB* 1000 UNITS PO SCH (09:36)
[2017-06-25] MEDS: Aspirin 81 mg CHEW TAB* 81 MG TAB.CHEW PO SCH (09:36)
[2017-06-25] MEDS: Metoprolol Succinate XL TAB* 25 MG PO SCH (09:36)
[2017-06-25] MEDS: Cyanocobalamin TAB* 500 MCG PO SCH (09:36)
[2017-06-25] MEDS: Potassium Chlor TAB* 10 MEQ TAB.ER PO SCH (09:36)
[2017-06-25] MEDS: Multivitamins/Minerals TAB PO SCH (09:36)
[2017-06-25] MEDS: Sertraline* 100 MG TAB PO SCH (09:36)
[2017-06-25 10:18] LABS: ABS Basophils 0 10^3/ul (0-0.2); ABS Eosinophils 0.6 10^3/ul (0-0.6); ABS Lymphocytes 3.1 10^3/ul (1.0-4.8); ABS Monocytes 0.6 10^3/ul (0-0.8); ABS Neutrophils 5.1 10^3/ul (1.5-7.7); ABS Nucleated RBC 0 10^3/ul; Eosinophil % 5.9 % (0-6); Hematocrit 42 % (35-47); Hemoglobin 14.3 g/dl (12.0-16.0); Lymphocyte % 33.2 % (25-47); Mean Corpuscular HGB Conc 34 g/dl (31-36); Mean Corpuscular Hemoglobin 30 pg (27-31); Mean Corpuscular Volume 88 fL (80-97); Mean Platelet Volume 8.5 um3 (7.4-10.4); Nucleated Red Blood Cells % 0; Platelet Count 261 10^3/ul (150-450); Red Blood Count 4.79 10^6/ul (4.0-5.4); Red Cell Distribution Width 13 % (10.5-15); White Blood Count 9.4 10^3/ul (3.5-10.8)
[2017-06-25 10:29] LABS: EGFR Non-African American 101.1 (>60)
[2017-06-25 11:52] VITALS: BP 105/68
--- NOTE | 2017-06-25 12:09 | PN ---
Work Excuse - Work Note Work Note: The above employee has been evaluated on 06/25/17. The physician has instructed the employee concerning further work as described below. Work Status: Ms. 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 [] Adam Sifuentes MD [id number]
--- NOTE | 2017-06-26 05:11 | DS ---
CC: Dr. Mora; Dr. Rockwell; Dr. Wren; Dr. Merlos; Dr. Hyatt; Dr. Barker * DISCHARGE SUMMARY: DATE OF ADMISSION: 06/21/17 DATE OF DISCHARGE: 06/25/17 DISCHARGE DIAGNOSES: 1. Sepsis, likely secondary to viral prodrome. 2. Viral perimyocarditis, improved. 3. Takotsubo/broken heart syndrome. DISCHARGE MEDICATIONS: 1. Tylenol 650 p.o. q.6 p.r.n. 2. Ibuprofen 600 mg p.o. t.i.d. The patient was advised that upon calling Dr. Barker's office to inquire whether ibuprofen should be tapered slowly during the 4- week period. 3. Cholecalciferol 4000 units p.o. daily. 4. Cyanocobalamin 500 mg p.o. daily. The patient is to continue on her insulin at home/insulin pump. 5. Continue norgestrel and estradiol 0.15/0.03/0.01 tab, [place]. 6. Metoprolol succinate 25 mg tab p.o. daily as recommended by Dr. Ochoa. 7. Multivitamins p.o. daily. 8. Sertraline 100 mg p.o. daily. 9. Valacyclovir 500 mg p.o. b.i.d. as previously prescribed. HISTORY OF PRESENT ILLNESS/HOSPITAL COURSE: The patient is a 26-year-old lady with a history of type 1 diabetes, on insulin pump, suspected celiac disease or IBS who was in her usual state of health until a few hours prior to admission when she woke up and was at the [employer] market and noticed that the infusion site of her insulin was sore and approximately at around 9:30 p.m., she returned home and changed the site and needle and noticed green yellow pus-like "goo." Please see the HPI details of Dr. Mora for more details. The patient was admitted with sepsis secondary to possible viral gastroenteritis and was subsequently found to have elevated troponins due to viral perimyocarditis. Cardiology consultation was done and the patient was seen by Dr. Barker. She has had some episodes of tachycardia during her stay and was placed on Toprol-XL, initially was recommended to be increased to 50, but on subsequent re-evaluation by cardiology department prior to discharge mentioned that it is okay for her remain at 25 XL. She also has had some diarrhea on presentation, which subsequently resolved the following day and likely due to some form of viral gastroenteritis causing a viral perimyocarditis and hence elevation of her troponin. A TTE back on 06/24/17 shows mild to moderate decreased left ventricular systolic function and anterior apex is relatively hypokinetic in contrast to the base, however, it did not show ballooning. However, it is believed by Dr. Barker that the patient might have mild form of Takotsubo and the patient has been informed that she will need an outpatient cardiac CTA to further evaluate if there are anomalous coronaries that will predispose her for any coronary events. The patient had been advised to continue her Toprol, continue her Motrin 600 mg p.o. t.i.d., and to discuss whether this will need to be tapered on her followup and/or setting of an appointment with Cardiology, to follow up with her PCP within 3 days to 1 week. Of note, she has been offered colchicine but the patient and her mother at bedside refused this given their concerns of how sensitive her GI tract is to medications given her known GI issues (i.e., Celiac disease and IBS). Risks and benefits were discussed by Cardiology team prior to D/C. PHYSICAL EXAM: GEN APPEARANCE: Awake, not in acute distress HEENT: NC/AT, PERRLA, moist oral mucosa, (-) throat erythema NECK: Soft, supple, (-) cervical LAD, (-)JVD HEART: S1S2 WNL, RRR, No MRG CHEST: CTA, BL, GAE, No W/R/R ABD: Soft, ND/NT, NABS 4x Q EXT: No C/C/E SKIN: Warm to touch PSYCH: No active psychosis, hallucinations, depression, SI/HI TIME SPENT: The total time spent evaluating the patient, reviewing pertinent data, and appropriate documentation is greater than 30 minutes. [id number]/[facility] #: [id number] [facility]
== END 2017-06-25 13:20 | disposition home or self-care (01) | DRG 871 ==
LOC: ED 13:33 → MEDTELE 18:30 → OBSVTOIN 06-21 11:06
PROVIDERS: ADMIT Internal Medicine; ATTEND Student in an Organized Health Care Education/Training Program
DX: A41.89 Other specified sepsis (principal); I40.0 Infective myocarditis; I51.81 Takotsubo syndrome; I47.2 Ventricular tachycardia; E10.9 Type 1 diabetes mellitus without complications; K58.9 Irritable bowel syndrome, unspecified; A08.4 Viral intestinal infection, unspecified; K90.0 Celiac disease; I08.1 Rheumatic disorders of both mitral and tricuspid valves; Z96.41 Presence of insulin pump (external) (internal); F32.9 Major depressive disorder, single episode, unspecified; E86.0 Dehydration; E87.6 Hypokalemia; Z88.1 Allergy status to other antibiotic agents; Z88.8 Allergy status to other drugs, medicaments and biological substances; Z82.49 Family history of ischemic heart disease and other diseases of the circulatory system; Z83.79 Family history of other diseases of the digestive system; Z72.89 Other problems related to lifestyle; Z91.018 Allergy to other foods
CPT/HCPCS: 36415; 71045; 74177; 76705; 80048; 80053; 80061; 81003; 82270; 82533; 83036; 83605; 83630; 83690; 83735; 84145; 84484; 84702; 85025; 85610; 85730; 86140; 86703; 87040; 87045; 87046; 87328; 87329; 87340; 87493; 87899; 93005; 93306; 93308; 99283; A9270-GY; G0378; J0744; J0780; J0834; J2405; J3475; J3490; Q9967